=== PATIENT | male | born 1980 | race Caucasian/White ===

== ENCOUNTER 2023-05-28 09:42 | Outpatient (CLI) | payer BC, SELFPAY ==
[2023-05-28 10:31] LABS: Appearance Urine Clear (Clear); Bilirubin Urine Negative (Negative); Blood Urine Negative (Negative); Color Urine Yellow (Yellow); Glucose Urine Negative (Negative); Ketones Urine Negative (Negative); Leukocyte Esterase Urine Negative (Negative); Nitrite Urine Negative (Negative); Protein Urine Negative (Negative); Specific Gravity Urine 1.015 (1.000-1.030); Urobilinogen Urine 0.2 (0.2-1.0); pH Urine 7.5 (5.0-8.5)
[2023-05-28 18:07] LABS: Chlamydia DNA Amplified* NOT DETECTED (No Detected); GC DNA Amplified* NOT DETECTED (No Detected)
== END 2023-05-28 09:43 | disposition home or self-care (01) ==
PROVIDERS: PCP Family Medicine; Visit Provider Nurse Practitioner Family
DX: R30.0 Dysuria (principal)
CPT/HCPCS: 81003; 87086; 87491; 87591

== ENCOUNTER 2024-07-14 04:41 | Emergency (ER) | payer OTHER, SELFPAY ==
[2024-07-14 04:50] VITALS: BP 142/90; PULSE 99; RESP 16; TEMP 36.4; O2SAT 98; BMI 28.5
[2024-07-14] MEDS: KETOROLAC 30 MG/ML inj IVP (05:00)
[2024-07-14 05:08] LABS: Appearance Urine Clear (Clear); Bilirubin Urine Negative (Negative); Blood Urine 3+ (Negative); Color Urine Yellow (Yellow); Glucose Urine Negative (Negative); Ketones Urine Negative (Negative); Leukocyte Esterase Urine Negative (Negative); Nitrite Urine Negative (Negative); Protein Urine 2+ (Negative); Specific Gravity Urine >= 1.030 (1.000-1.030); Urobilinogen Urine 0.2 (0.2-1.0)
--- NOTE | 2024-07-14 05:25 | CRLHL7_ITS ---
For Patients: As a result of the Century Cures Act, medical imaging exams and procedure reports are released immediately into your electronic medical record. You may view this report before your referring provider. If you have questions, please contact your health care provider. INDICATION: Left-sided flank and groin pain. TECHNIQUE: CT abdomen and pelvis without contrast. COMPARISON: None. FINDINGS: Lower chest: Unremarkable. Liver: Normal in size and attenuation. No suspicious masses. Gallbladder and bile ducts: No stones or inflammation. No biliary dilatation. Pancreas: Unremarkable. No mass or inflammation. Spleen: Normal in size. No masses. Adrenal glands: Normal in size. No nodules. Kidneys: Small 2 mm stone is at the left ureterovesical junction on series 2, image 136. There are 2 stones remaining in the left kidney. No hydronephrosis. GI tract: Unremarkable. Normal in caliber. No sign of mass or inflammation. Normal appendix. Vasculature: Abdominal aorta is normal in caliber. Lymph nodes: No lymphadenopathy. Peritoneum/Abdominal Wall: Unremarkable. No sign of mass or infiltration. No free air or significant free fluid. Pelvis: Unremarkable. No pelvic masses. Bones: Unremarkable for age. IMPRESSION: Small 2 mm stone at the left UVJ is not causing obstructive changes at this time. There are 2 additional stones remaining in the left kidney. Remainder of the exam is unremarkable. Please note that all CT scans at this facility use dose modulation, iterative reconstruction, and/or weight-based dosing when appropriate to reduce radiation dose to as low as reasonably achievable. Dictated by Zak Lanier MD @ 07/14/2024 6:30:45 AM (Electronically Signed)
[2024-07-14 05:26] LABS: Bacteria Urine Few; RBC Urine 25-50 (0-2); Squamous Epithelial Cell Urine Few (None-Few)
--- OUTSIDE RECORDS SUMMARY | 2024-07-14 05:33 | XMS_ITS | Continuity of Care Document ---
Author Organization [facility] Address [address] [address] [place] [address] Phone Care Team Providers Care Advanced Practice Registered Nurse Name Role Phone Isaac Mcduffie MD Unavailable Unavailabl e Medications Medication Instructions Dosage Effective Dates (start - stop) Status Comments famotidine 40 mg tablet take 1 tablet by oral route every day at bedtime 40 MG - Active Needs OV for further refills pantoprazole 40 mg tablet,delayed release TAKE ONE TABLET BY MOUTH ONE TIME DAILY - Active Needs OV for further refills baclofen 10 mg tablet TAKE ONE TABLET BY MOUTH TWICE DAILY before meals - Active Metamucil (sugar) oral powder 1 tablespoon everyday - Active Layne Allergy 180 mg tablet take 1 tablet by oral route every day 180 MG - Active CHEWABLE MULTI VITAMIN (unknown strength) take one tablet orally every day Not Available - Active Procedures Procedure Date Established Level 3 Established Level 3 Established Level 3 Offic/outpt E&m Estab Mod-hi 2 20 Offic/outpt E&m Estab Low-mod 8 Offic/outpt E&m Estab Low-mod 8 Breath Test Glucose Offic Cons New/estab Mod Advance Directives Directive Yes / No Effective Date File Name No Information Encounters Encounter Description Practice Location Reason(s) For Visit Diagnoses Date Provider Providers Copied on Encounter [facility], [address] [address], [place], [id number], [place] tel:[phone] [facility] No Information 4 Azar Gray. [address] [facility], [address], [id number], [place]. tel:[phone] [facility], [address] [address], [place], [id number], [place] tel:[phone] [facility] No Information 4 Azar Gray. [address], [id number], [place]. tel:[phone] Established Level 3 [facility], [address] [address], [place], [id number], [place] tel:[phone] [facility] GI Symptoms or Concerns (chief complaint) Previous History Review (chief complaint) Gastroesophage al reflux disease without esophagitisIrr itable bowel syndrome with diarrheaBloati ng 3 Azar Gray. [address] [facility], [address], [id number], [place]. tel:[phone] Referring Provider: Referral Self, USE FOR SELF REFERRALS. [facility], [address] [address], [place], [id number], [place] tel:[phone] [facility] No Information [address]. [address] [place] [address], [id number], [place]. tel:[phone] Established Level 3 [facility], [address] [address], [place], [id number], [place] tel:[phone] [facility] GI Symptoms or Concerns (chief complaint) Gastroesophage al reflux disease without esophagitisIrr itable bowel syndrome with diarrhea 3 2 Evan Holley. [address] [place] [address], [address], [id number], [place]. tel:[phone] Referring Provider: Koby Obando, [address] [place], [address] . tel:[phone] [facility], [address] [address], [place], [id number], [place] tel:[phone] [facility] No Information 2 Azar Gray. [address] [facility], [facility] [address], [place], [place], [id number], [place]. tel:[phone] Established Level 3 [facility], [address] [address], [place], [id number], [place] tel:[phone] [facility] GI Symptoms or Concerns (chief complaint) BloatingGastro esophageal reflux disease without esophagitisIrr itable bowel syndrome with diarrhea 1 Evan Holley. [address] [place] [address], [facility] [address], [place], [id number], [place]. tel:[phone] Referring Provider: Referral Self, USE FOR SELF REFERRALS. [facility], [address] [address], [place], [id number], [place] tel:[phone] [facility] No Information 1 Audrey Bright Salome. [address] [facility], [facility] [address], [place], [place], [id number], [place]. tel:[phone] Offic/outpt E&m Estab Mod-hi 2 [facility], [address] [address], [place], [id number], [place] tel:[phone] [facility] GI Symptoms or Concerns (chief complaint) BloatingGastro esophageal reflux disease without esophagitisIrr itable bowel syndrome with diarrheaDietar y counseling and surveillance 0 Evan Holley. [address] [place] [address], [facility] [address], [place], [id number], [place]. tel:[phone] Referring Provider: Referral Self, USE FOR SELF REFERRALS. [facility], [address] [address], [place], [id number], [place] tel:[phone] [facility] No Information 9 Pricilla Powell. [address] [facility], [place] [address], [place], [place], [id number], [place]. tel:[phone] Offic/outpt E&m Estab Low-mod [facility], [address] [address], [facility] [place], [id number], [place] tel:[phone] [facility] GI Symptoms or Concerns (chief complaint) Gastroesophage al reflux disease without esophagitisIrr itable bowel syndrome with diarrheaDietar y counseling and surveillanceEl evated blood-pressure reading, w/o diagnosis of htnEssential (primary) hypertension 0 8 Evan Holley. [address], [id number], [place]. tel:[phone] Referring Provider: Referral Self, USE FOR SELF REFERRALS. Offic/outpt E&m Estab Low-mod [facility], [address] [address], [facility] [place] [id number], [place] tel:[phone] [facility] GI Symptoms or Concerns (chief complaint) Gastroesophage al reflux disease without esophagitisEpi gastric painBloatingDi etary counseling and surveillance 8 Evan Holley. [address] [place] [address], [id number], [place]. tel:[phone] Referring Provider: Referral Self, USE FOR SELF REFERRALS. [facility], [address] [address], [facility] [place], [id number], [place] tel:[phone] [facility] Bloating 7 Evan Holley. [address], [id number], [place]. tel:[phone] [facility], [address] [address], [facility] [place], [id number], [place] tel:[phone] [facility] Epigastric pain 2 7 Evan Holley. [address] [place] [address], [address], [id number], [place]. tel:[phone] Referring Provider: Referral Self, USE FOR SELF REFERRALS. [facility], [address] [address], [place], [id number], [place] tel:[phone] [facility] Dyspepsia 7 Evan Holley. [address] [facility], [facility] [address], [place], [id number], [place]. [phone] Offic Cons New/estab Mod [facility], [address] [address], [place], [id number], [place] tel:[phone] [facility] GI Symptoms or Concerns (chief complaint) BloatingGastro esophageal reflux disease without esophagitisEpi gastric painDietary counseling and surveillanceEl evated blood-pressure reading, w/o diagnosis of htn Evan Holley. [address] [place] [address], [facility] [address], [place], [id number], [place]. [phone] Referring Provider: Melani Barnes MD, [address] [place] [address], [address]. tel:[phone] Family History Family Member Type Diagnosis Age At Onset Daughter Problem (finding) Alive and well Father Problem (finding) Colon polyps Mother Problem (finding) Alive and well Son Problem (finding) Alive and well Father Problem (finding) gallbladder disease Immunizations Vaccine Date Status Comments Afluria Qd administered Note: [facility] bi-directional interface ; Source: Other Registry Afluria Qd administered Note: [facility] bi-directional interface ; Source: Other Registry SARS-COV-2 (COVID-19) vaccin e, mRNA, spike protein, LNP, bivalent, preservative free, 30 mcg/0.3 mL dose, guillermina-sucrose formulation administered Note: [facility] bi-direct ional interface ; Source: Other Registry Afluria Qd administered Note: [facility] bi-directional interface ; Source: Other Registry SARS-COV-2 (COVID-19) vaccin e, mRNA, spike protein, LNP, preservative free, 30 mcg/0.3mL dose administered Note: [facility] bi-direct ional interface ; Source: Other Registry SARS-COV-2 (COVID-19) vaccin e, mRNA, spike protein, LNP, preservative free, 30 mcg/0.3mL dose administered Note: [facility] bi-direct ional interface ; Source: Other Registry SARS-COV-2 (COVID-19) vaccin e, mRNA, spike protein, LNP, preservative free, 30 mcg/0.3mL dose administered Note: [facility] bi-direct ional interface ; Source: Other Registry Afluria Qd administered Note: [facility] bi-directional interface ; Source: Other Registry Afluria Qd administered Note: [facility] bi-directional interface ; Source: Other Registry Fluzone Quad 6mo or older administered Note: [facility] bi-direct ional interface ; Source: Other Registry Afluria Qd administered Note: [facility] bi-directional interface ; Source: Other Registry Afluria Qd administered Note: [facility] bi-directional interface ; Source: Other Registry Fluzone Quad 6mo or older administered Note: [facility] bi-direct ional interface ; Source: Other Registry tetanus toxoid, reduced diphtheria toxoid, and acellular pertussis vaccine, adsorbed administered Note: [facility] b i-directional interface ; Source: Other Registry Afluria Qd administered Note: [facility] bi-directional interface ; Source: Other Registry Afluria Qd administered Note: [facility] bi-directional interface ; Source: Other Registry Fluzone Quad 6mo or older administered Note: [facility] bi-direct ional interface ; Source: Other Registry Afluria Qd administered Note: [facility] bi-directional interface ; Source: Other Registry Afluria Qd administered Note: [facility] bi-directional interface ; Source: Other Registry Fluzone Quad 6mo or older administered Note: [facility] bi-direct ional interface ; Source: Other Registry tetanus toxoid, reduced diphtheria toxoid, and acellular pertussis vaccine, adsorbed administered Note: [employer] b i-directional interface ; Source: Other Registry tetanus and diphtheria toxoi ds, adsorbed, preservative free, for adult use (2 Lf of tetanus toxoid and 2 Lf of diphtheria toxoid) administered Note: [facility] bi-direct ional interface ; Source: Other Registry measles, mumps and rubella v irus vaccine administered Note: [facility] bi-direct ional interface ; Source: Other Registry diphtheria and tetanus toxoi ds, adsorbed for pediatric use administered Note: [facility] bi -directional interface ; Source: Other Registry Payers Payer name Insurance type Covered green party ID Authoriza tion(s) No Information Social History Type Description Quantity Date Captured Comments Sex Male Smoking Status No Information Chief Complaint And Reason For Visit No Information Reason For Referral Reason For Referral No Information Plan Of Treatment Date Type Action Status Goal Lifestyle education regardin g diet completed Goal Lifestyle education regardin g diet completed Goal Lifestyle education regardin g diet completed Goal Lifestyle education regardin g diet completed Goal Lifestyle education regardin g diet completed Referral Ordered: follow-up visit 1 Month Appointment date/timeframe: 1 Month ordered Appointment Luis Miguel Rodriguez BOOKED History Of Present Illness Encounter Date Complaint History Of Prese nt Illness GI Symptoms or Concerns Luis Miguel is a pleasant 43 year old male with GERD, chronic irritable bowel syndrome and bloating, who I am seeing via virtual office visit, in follow-up. Previous History Review Luis Miguel has had a prior, extensive work-up including EGD with normal biopsies of the esophagus, stomach and duodenum as well as a colonoscopy, video capsule endoscopy, CT scans, bacterial overgrowth breath test, all of which have been essentially unrevealing or negative. Prior treatments have included a trials of desipramine, peppermint oil based therapies, multiple different antacid medications, and cholestyramine, all of which provided no benefit. Symptoms of reflux have been adequately controlled on the current regimen of pantoprazole 40 mg daily , famotidine nightly, and baclofen 10 mg twice daily. on this regimen he is symptoms less than once weekly. Denies chronic cough, change in voice, chest pain, or dysphagia. He previously was experiencing daily loose stools as well as bloating. This is improved and tolerable with fiber supplementation twice daily. He notes stools are semi formed and much easier to pass. He denies any change in, blood per rectum, unintentional weight loss, straining to defecate, or abdominal pain. GI Symptoms or Concerns 42-year- old man with history of chronic heartburn, likely with a functional component, chronic irritable bowel syndrome with diarrhea predominance and bloating, presents for routine follow-up by virtual visit. He was last seen by me in 10/2020 for follow-up. I have been following him since 2017 for these symptoms. He has undergone extensive workup in the past, including upper endoscopy and colonoscopy, video capsule endoscopy, CT scans, bacterial overgrowth breath test, all of which have been essentially unrevealing or negative. The upper endoscopy did include esophageal, gastric, duodenal biopsies, all of which were normal. Previous treatments have included a trial of desipramine, peppermint oil based therapies, multiple different antacid medications, and cholestyramine, all of which provided no benefit. He has had improvement in reflux symptoms partially with pantoprazole 40 mg daily and famotidine nightly. This led us to add baclofen 10 mg 1-2 times per day for functional component of reflux. He is currently happy with this regimen. We again discussed whether 1 or the other anti acid medication may be sufficient, but he has tried only famotidine or only pantoprazole in the past, and feels that symptoms are not as well controlled. He still also feels that the baclofen is helpful, but would be open to trying to decrease the dosage to see if a lesser dosage is equally effective. For his chronic loose stools and bloating in the past, he has found benefit with fiber supplements. He states his maternal grandfather had colon cancer in his 70s. He does not believe his mother has had significant polyps. His father has had some polyps in his 50s and later, but he does not believe that he was on earlier surveillance then every 5 years. GI Symptoms or Concerns Luis Miguel hairston is a very pleasant 40-year-old man who works as a commercial insurance underwriter and has chronic issue with heartburn, likely functional heartburn as well, epigastric discomfort, bloating and IBS symptoms for many years and presents for routine followup today. This visit was conducted as a virtual visit. Luis Miguel was last seen by me in August 2019 for these symptoms.He initially saw me in 2016. He has had extensive workup in the past including upper endoscopy and colonoscopy, video capsule endoscopy, CT scans, bacterial overgrowth breath tests, all of which have been essentially unrevealing or negative. The upper endoscopy did include esophageal gastric and duodenal biopsies.Previous treatments have included a trial of desipramine without any relief. He tried peppermint oil based therapies, multiple different antacid medications and cholestyramine. Currently, he is taking pantoprazole 40 mg daily and famotidine nightly and that combination has been helpful for redu GI Symptoms or Concerns Luis Miguel hairston is a 39-year-old man with a history of chronic heartburn and reflux, epigastric discomfort, bloating, and irritable bowel syndrome, who presents for routine followup.Luis Miguel was last seen by me in May of 2018. Previously, he has been tried on peppermint oil based therapies, multiple different antacid medications, and cholestyramine. Currently, he is taking pantoprazole 40 mg daily, which he had been taking twice per day when I saw him last, but he successfully reduce this to daily without any worsening of his symptoms. He also takes Zantac at night as needed. He takes a fiber supplement, which he says he usually takes Citrucel powder form in the morning and Metamucil at night. He does this with the fiber because Metamucil causes more bloating, but if he takes only the Citrucel powder, he tends to feel his stools are too sticky. He also has been taking baclofen 10 mg twice per day, which we started for nonacid reflux or hypersensitive esophagus. In the past, GI Symptoms or Concerns I had th e pleasure of seeing Luis Miguel Rodriguez today in clinic for followup of chronic heartburn, epigastric discomfort, nausea, bloating, and also some mild constipation. He was last seen by me in August of this year.Luis Miguel has done fairly well with a complicated regimen for his heartburn and epigastric discomfort. He has been taking baclofen 5 mg in the morning and 10 mg at night without any side effects and with a good relief of his heartburn symptoms that he had had previously. He also still continues to take pantoprazole 40 mg twice per day and ranitidine often up to twice a day. For his constipation, he takes Citrucel and Metamucil alternating because Metamucil will give him too much gas otherwise. At previous visit, I had suggested we try cholestyramine and he now tells me he thinks he did not really try that very much and so lately, when he has the feeling of some breakthrough heartburn symptoms, he will take the cholestyramine and he actually thinks that this has helpe GI Symptoms or Concerns Complete history, physical exam, and review of systems were obtained today in the clinic and recorded in our electronic medical record. Please see below for my assessment and plan.I had the pleasure of seeing Luis Miguel Rodriguez again in clinic today for followup of multiple GI complaints. Please refer to my previous clinic note on April 26, 2017 for a full description of his history. Briefly, he is a 37-year-old man with a long history of heartburn and reflux related symptoms as well as boating, epigastric discomfort and nausea for many years. He has previously had workup starting in 2006 with upper endoscopy, colonoscopy, video capsule endoscopy, and gastric emptying study as well as various CAT scans of his abdomen and pelvis and ultrasound, all of which have been normal. He also did have a functional HIDA scan which did show an ejection fraction of 21% but did not correlate with any symptoms and was otherwise normal. He has previously had stool testing for stool culture, GI Symptoms or Concerns Luis Miguel hairston is a 37-year-old man who presents today for a long history of multiple abdominal complaints as well as reflux disease.He states his GI symptoms started in about 2006 with predominantly nausea all the time as well as more mild epigastric abdominal discomfort and alternating bowel habits. In 2006, he had an extensive workup, which he states included a colonoscopy, upper endoscopy, video capsule endoscopy, and gastric emptying study, CT of the abdomen and pelvis and ultrasound all of which were essentially normal. He was started on omeprazole presumably for the epigastric discomfort which may or may not have helped at that time, but he remained on that for many years. In 2008 towards the end of this workup, he started Metamucil and this seemed to help his symptoms almost immediately. He did pretty well until about March of 2016, when he had an episode of eating some very greasy food at a fair and suddenly started to having essentially recurrence of his previous Functional Status Date Functional Assessmen t No Information Instructions Date Instruction Additional Infor debbie Gastroesophageal Reflux Disease Related to Gastroesophageal reflux disease without esophagitis Lifestyle education regarding di et Related to Dietary counseling and surveillance Lifestyle education regarding di et Related to Dietary counseling and surveillance Lifestyle education regarding di et Related to Dietary counseling and surveillance More consistent use of pantoprazole 40 mg daily for at least two weeks as well as ranitidine as needed up to twice per day.Continue with Iberogast.Continue other diet and lifestyle modification for heartburn symptoms.We will trial bile acids sequestrant for bile salt reflux potentially.If no improvement with cholestyramine, we will trial baclofen, which has been prescribed today for nonacid reflux.Patient will contact me in the next few weeks with an update on symptoms and we can discuss further testing and/or treatment, which may include pH impedance monitoring. Related to Gastroesophageal reflux disease without esophagitis Gastroesophageal Reflux Disease Related to Gastroesophageal reflux disease without esophagitis Lifestyle education regarding di et Related to Dietary counseling and surveillance 1. Trial of desipram ine 25 mg at bedtime.2. Avoidance of potential triggers for an advertent aerophagia.3. Trial of low FODMAPs diet.4. Increase pantoprazole to twice daily dosing and discontinue H2 blockers.5. If reflux symptoms persist, I would consider pH impedance monitoring on PPI therapy.6. If bloating and gas symptoms persist, can consider alternative empiric treatment such as with IBgard and/or probiotics, as well as possible testing for bacterial overgrowth. Related to Bloating Gastroesophageal Reflux Disease Related to Gastroesophageal reflux disease without esophagitis Gas and Gas Pain Related to Bloa ting Low FODMAPS diet Related to Bloa ting Lifestyle education regarding di et Related to Dietary counseling and surveillance Assessments Type Assessment Date No Information Patient Care Teams Name Effective Dates (start - stop) Status Members No Information
--- OUTSIDE RECORDS SUMMARY | 2024-07-14 05:33 | XMS_ITS | Clinical Summary ---
Author Organization [facility] Address [place], [place] [address] Care Team Providers Care Mobile Patrol Officer Name Role Phone TaraMelani gipson Primary Care Provider Allergies Active Allergy Reactions Criticality Noted Date Comments Citalopram Other - Describe In Comment Field 07/22/2013 libido Paroxetine Other - Describe In Comment Field 07/22/2013 somnolence Fluoxetine GI Upset 07/22/2013 capsule form causes stomach upset. tolerates tablet form well. Sertraline Other - Describe In Comment Field 07/22/2013 urine leaking and decreased libido Medications Medication Sig Dispensed Refills Start Date End Date Status psyllium (METAMUCIL SMOOTH TEXTURE) Powd Take 1 tsp by mouth once daily. 0 08/27/2010 Active fexofenadine (TRISTA) 180 mg tabletIndications:Nick rgic rhinitis due to cats Take 1 tablet by mouth once daily. 90 tablet 3 08/26/2015 Active baclofen (LIORESAL) 10 mg tablet Take 10 mg by mouth 2 times daily. 5mg PO QAM, 10mg PO QPM 5 02/08/2018 Active famotidine (PEPCID) 20 mg tabletIndications:Roosevelt roesophageal reflux disease with esophagitis without hemorrhage Take 1 Tablet (20 mg) by mouth at bedtime. 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 0 01/25/2021 Active pantoprazole (PROTONIX) 20 mg tabletIndications:Roosevelt roesophageal reflux disease with esophagitis without hemorrhage Take 1 Tablet (20 mg) by mouth once daily. 90 Tablet 4 06/25/2023 Active Active Problems Problem Noted Date Diagnosed Date Routine adult health maintenance 03/15/2018 Overview (03/15/2018): Colonoscopy 02/2018 inflammatory polyp, repeat at age 51 Hiatal hernia 04/15/2016 GERD (gastroesophageal reflux disease) 2 Resolved Problems Problem Noted Date Diagnosed Date Resolved Date Major depressive disorder, r ecurrent episode, moderate 06/19/2013 01/25/2021 Anxiety state, unspecified 02/08/2012 0 01/25/2021 Immunizations Name Administration Dates Next Due COVID-19 vaccine ([employer] 30mcg/0.3mL) PF, MDV 12/11/2020,11/20/2020 DT (Age < 7 years) 03/14/1991 Influenza, IIV3 (Age >=3 years) 08/19/2013,07/27 Influenza, IIV4 05/03/2023, 2,06/17/2021,07/04/20 18,08/16/2016,06/24/2015,07/04/2014 MMR 04/05/1993 Td (Age >=7 Years) 09/06/2001 Tdap 08/15/2015,11/14/2012 Family History Medical History Relation Name Comments Hypertension Father Other Father colon polyps Cancer-colon Maternal Grandfather Cancer-breast Maternal Grandmother Other Other UC cousin Mater nal side Stroke Paternal Grandfather Cancer Paternal Grandmother lung Heart attack Paternal Uncle Hypertension Paternal Uncle Stroke Paternal Uncle twin Relation Name Status Comments Father Maternal Grandfather Maternal Grandmother Other Paternal Grandfather Paternal Grandmother Paternal Uncle Social History Tobacco Use Types Packs/Day Years Used Date Smoking Tobacco: Never Smokeless Tobacco: Never Tobacco Cessation:Counseling Given: Yes Alcohol Use Standard Drinks/Week Comments Yes 8 (1 standard drink = 0.6 oz pur e alcohol) occasional PHQ-2 Answer Date Recorded PHQ-2 TOTAL SCORE 5 06/23/2023 Social Connections Answer Date Recorded Frequency of Communication with Friends and Fami ly Not on file 04/21/2023 Financial Resource Strain Answer Date R ecorded Difficulty of Paying Living Expenses 3 04/13/2022 Difficulty of Paying Living Expenses Not on file 04/13/2022 Food Insecurity Answer Date Recorded Worried About Running Out of Food in the Last Ye ar 1 04/13/2022 Transportation Needs Answer Date Record ed Lack of Transportation (Medical) 1 04/13/2022 Housing Stability Answer Date Recorded Unable to Pay for Housing in the Last Year 1 04/13/2022 Sex and Gender Information Value Date Recorded Sex Assigned at Not on file Gender Identity Not on file Sexual Orientation Not on file Obstetrics History Last Filed Vital Signs Vital Sign Reading Time Taken Comments Blood Pressure 127/79 11/01/2023 9:26 AM CDT Pulse 84 11/01/2023 9:26 AM CDT Temperature 37.5 C (99.5 F) 10/27/2023 11:29 AM FINAL COAT SPRAYER Respiratory Rate 14 05/24/2023 5:02 PM CDT Oxygen Saturation 99% 11/01/2023 9:26 AM CDT Inhaled Oxygen Concentration - - Weight 93.4 kg (206 lb) 11/01/2023 9:26 AM CDT Height 182.9 cm (6') 06/23/2023 11:15 AM CDT Body Mass Index 27.94 06/23/2023 11:15 AM CDT Plan of Treatment Upcoming Encounters Date Type Department Care Team (Late st Contact Info) Description 07/30/2024 9:30 AM FINAL COAT SPRAYER Orders Only [facility] [address] [place] [place] [address] Lab, [place] 10/03/2024 11:15 AM FINAL COAT SPRAYER Office Visit [facility] [address] [place] [address] Jacky Morris MD [address] [place] [address] Health Maintenance Due Date Last Done Comments COVID-19 vaccine series ( season) 2024 06/15/2023, 05/26/2022, 06/17/2021, Additional history exists Influenza for age 9-49 04/21/2024 , 05/26/2022, 06/17/2021, Additional history exists BMI (ht and wt on same day) for age 18+ 06/23/2024 06/23/2023, 02/04/2022, 01/25/2021, Additional history exists Depression screening for age 12+ 06/23/2024 06/23/2023, 07/05/2021, 01/28/2021, Additional history exists Tetanus booster 08/15/2025 08/15/2015, 10/20, 09/06/2001 Lipids for age 35-44 06/23/2028 06/23/2023, 01/28/2021, 08/26/2015 HIV for age 15-65 Completed 04/30/2012 Tdap Completed 08/15/2015, 11/14/2012 Hepatitis C screening for age 18-79 Completed 06/23/2023 Pneumococcal series for age 6-64 Aged Out No longer eligible based on patient's age to complete this topic Procedures Procedure Name Priority Date/Time Associated Diagnosis Comments ANTI HCV Routine 06/23/2023 12:03 PM CDT Need for hepatitis C screening test LIPID PANEL W REFLEX MEASURED LDL Routine 06/23/2023 12:03 PM CDT Lipid screening ANTI HIV 1/2 Routine 04/30/2012 9:54 AM CDT Screening for STD (sexually transmitted disease) from Last 3 Months or Most Recently Relevant to Health Maintenance Results * LIPID PANEL W REFLEX MEASURED LDL (06/23/2023 12:03 PM CDT) CHOLESTEROL,TOTAL 170 100 - 199 mg/dL 06/23/2023 9:36 PM CDT [facility] Comment: Cholesterol, Total Reference Ranges Desirable <200 mg/dL Borderline 200-239 mg/dL High >=240 mg/dL TRIGLYCERIDES 104 <150 mg/dL 06/23/2023 9:36 PM CDT [facility] HDL CHOLESTEROL 66 >40 mg/dL 9:36 PM CDT [facility] NON-HDL CHOLESTEROL 104 <145 mg/dl 06/23/2023 9:36 PM CDT [facility] CHOL/HDL RATIO 2.58 <4.50 06/23/2023 9:36 PM CDT [facility] LDL CHOLESTEROL 83 <=130 mg/dL 06/23/2023 9:36 PM CDT [facility] VLDL CHOLESTEROL 21 <=30 mg/dL 06/23/2023 9:36 PM CDT [facility] PROVIDER ORDERED STATUS RANDOM 06/23/2023 9:36 PM CDT [facility] TRA [facility] Blood BLOOD SPECIMEN / Unknown Venipuncture / Unknown 06/23/2023 12:03 PM CDT 06/23/2023 12:03 PM CDT Melani Barnes DO CHEMISTRY Performing Organization Address City/[facility]/ZIP Co de Phone Number [facility] [address] [place] [address], [place] * ANTI HCV (06/23/2023 12:03 PM CDT) HEPATITIS C ANTIBODY Non-Reacti ve Non-React stefan 06/23/2023 9:35 PM CDT [facility] Comment:Please note, per www .CDC.gov: If a patient is known to be at high risk of HCV infection, or is symptomatic, and the physician's suspicion of HCV infection is high, HCV RNA testing is often employed and is of diagnostic value, even after an initial negative anti-HCV test result. Blood BLOOD SPECIMEN / Unknown Venipuncture / Unknown 06/23/2023 12:03 PM CDT 06/23/2023 12:03 PM CDT Melani Barnes DO SEND OUTS [facility] [address] [place] [address], [place] * ANTI HIV 1/2 (04/30/2012 9:54 AM CDT) ANTI HIV 1/2 Non-reacti ve [facility] Blood specimen (specimen) BLOOD SPECIMEN / Unknown 04/30/2012 9:54 AM CDT 04/30/2012 9:45 AM CDT Melani Barnes DO SEND OUTS [facility] INTERNAL ZIP [address] [place] [address] from Last 3 Months or Most Recently Relevant to Health Maintenance Care Teams Mobile Patrol Officer Relationship Specialty Start Date End Date Melani Barnes DO [address] [facility] [place] [address] PCP - General Family Practice 05/15/13
--- OUTSIDE RECORDS SUMMARY | 2024-07-14 05:34 | XMS_ITS | Continuity of Care Document ---
Author Organization [facility] Nica parra, [facility] Address [address] [place] [address] Care Team Providers Care Servicing Manager Name Role Phone [facility] Primary Care Provider Assessment Encounter Date Assessment Date Assessment LastModified by Organization Details LastModified Time 06/06/2024 06/06/2024 The patient is experiencing erectile dysfunction with associated intermittent numbness and loss of sensation. Differential diagnosis for erectile dysfunction includes but is not limited to: Vascular issues (e.g., insufficient blood flow or premature venous leakage) Neurological causes (e.g., nerve damage or compression) Hormonal imbalances (e.g., low testosterone levels) Psychological factors (e.g., stress, anxiety, depression) [email or web address] Not available 06/06/2024 13:29:51 Plan of Treatment Reminders Order Date Submit Date Provider Last Modified By Organization Details Last Modified Time Details Appointments None recorded . Lab lh (luteini zing hormone) , serum - PLEASE CALL PT TO SCHEDULE 2023 024 alysa [facility], [address] , [place], [address], 10:59:44 testoste edie, total, serum - PLEASE CALL PT TO SCHEDULE 2023 024 [facility] [address] [place], [address], 10:59:45 shbg (sex hormone- binding globulin ), serum - PLEASE CALL PT TO SCHEDULE 2023 024 [facility] [address], [place], [address], 10:59:45 Referral None recorded . Procedures None recorded . Surgeries None recorded . Imaging US, duplex, penis, complete - PLEASE CALL PT TO SCHEDULE 2023 024 alysa [facility] [place], [address], [address], [place], [address], 11:00:25 Medication Orders None recorded . Patient TargetsNo targets recorded. Patient Instructions Encounter Date Encounter Id Patient Instructions Last Modified By Organization Details Last Modified Time 06/06/2024 [id number] We had a long discussion regarding the etiologies of erectile dysfunction. In the vast majority of men, this is due to chronic insults of underlying vascular conditions such as diabetes, hypertension, and hyperlipidemia. In some men this may also be caused by iatrogenic causes such as pelvic surgery as in the case of radical prostatectomy. In some cases it may also be due to underlying neurologic insults. We then discussed potential management strategies for erectile dysfunction. First we discussed vacuum assisted devices. These are a non-pharmacologic therapy which allows blood to be drawn into the penis using a pump and is then held in place with a ring at the base of the penis. Potential side effects can include bruising. Often this is insufficient for most men to maintain sufficient erections as mono therapy. We then discussed pharmacologic options. We discussed the use of phosphodiesterase inhibitors. We discussed this is often a first line therapy for men as it is discreet and can be utilized quickly on an as needed basis. We discussed that this is administered 30-60 minutes before intercourse on an empty stomach. We discussed side effects including flushing, vision changes (blue light vision), hypotension when combined with nitrates, and notably priapism. We discussed in the event of an erection lasting more than 4 hours this is an emergency and he must go to the nearest Emergency Department. We then discussed intraurethral suppository therapy. This may be an option for some men, though efficacy is often lower than that of phosphodiesterase therapy. Men may experience local discomfort and burning with its use. Similar risks of priapism also exist. We then discussed intracavernosal injection therapy. This involved injecting vasodilatory agents directly into the penis using a small needle. This may allow men to achieve erections when phosphodiesterase inhibitors are no longer effective. We discussed administration and potential side effects including bruising, hematoma formation, and risk of priapism. Finally we briefly discussed the role of surgery in the form of penile prosthesis placement. Not available 05/27/2024 16:45:54 Reason for Referral None Reported. Results Created Date Observation Date Name Description Value Unit Range Abnormal Flag Note LastModifiedBy Organization Detail LastModifiedTime 06/13/20 24 06/13/2024 US, penis No observ ation record ed. [facility] [address] [facility] [address], [place], [address], 06/18/2024 11:30:42 Result Notes None recorded. Medical Equipment None Reported. Allergies No known drug allergies Medications Name Sig Start Date Stop Date Status Note LastModified by Organization Details LastModified Time famotidine 40 mg tablet TAKE ONE TABLET BY MOUTH ONE TIME DAILY AT BEDTIME* active Not Available Not Available No t Available baclofen 10 mg tablet TAKE ONE TABLET BY MOUTH TWICE DAILY BEFORE MEALS* active Not Available Not Available No t Available pantoprazole 40 mg tablet,delay ed release TAKE ONE TABLET BY MOUTH ONE TIME DAILY* active Not Available Not Available No t Available oseltamivir 75 mg capsule TAKE ONE CAPSULE BY MOUTH TWICE DAILY FOR 5 DAYS* 06/06 completed Not Available Not Available Not Available Vitals Date Recorded Body height Body mass index (BMI) Body weight Provider Name and Address Organization Details Last Updated DateTime 06/06/2024 182.88 cm 29.2 kg/m2 71848.36 g Gita Arias [facility] 06/06/2024 11:58:50 Social History Question Answer Notes LastModified by Organizat ion Details LastModified Time Tobacco Smoking Status Never Smoker Gita torres [facility] 06/06/2024 12:01:12 What Is Your Level Of Alcohol Consumption? Heavy [email or web address] Information not available 06/06/2024 What Is Your Level Of Caffeine Consumption? None Information not available 06/06/2024 What Was The Date Of Your Most Recent Tobacco Screening? 06/06/2024 [email or web address] Information not available 06/06/2024 Have You Ever Been Counseled For Unhealthy Alcohol Use? No [email or web address] Information not available 06/06/2024 Do You Use Any Illicit Or Recreational Drugs? No Information not available 06/06/2024 How Many Days In The Past Year Have You Consumed 5 Or More Drinks? 100 [email or web address] Information no t available 06/06/2024 Sex: Unknown Functional Status None recorded. Mental Status None recorded. Family History Relationship Description Onset Age of this Age Resolved Age Notes LastModified by Organization Details LastModified Time Maternal Grandfather Family history of cancer of colon [email or web address] Not available 06/06 11:59:59 Paternal Grandmother Family history of cancer of colon Not available 06/06 11:59:59 Maternal Grandmother Family history of breast cancer [email or web address] Not available 06/06 12:00:16 Medical History Condition Response Other N High Blood Pressure N Kidney Stones Y Lung Disease N Depression Y GERD/Acid Reflux Y Diabetes N Sexually Transmitted Infection N Bleeding Disorder N Cancer N High Cholesterol N Heart Disease N Past Encounters Encounter ID Performer Location Encounter Start Date Encounter Closed Date Diagnosis/Indication Diagnosis SNOMED-CT Code Diagnosis ICD10 Code [id number] Nixon Ernandez MD [facility] [address] [place] [address] 06/06/2024 11:46:12 06/07/2024 15:33:09 Erectile dysfunction 027490525 F52.21 Reduced libido 7705083 R 68.82 Health Concerns Section Related Observation LastModified by Organization Detai ls LastModified Time None Recorded Concern Status LastModified by Organization Details LastModified Time None Recorded Payers Encounter Date Sequence Insurance Name Policy Number Policy Campuzano Covered Member ID Campuzano Member ID Guarantor Name 06/06/2024 1 [facility] Luis Miguel Rodriguez [id number] Luis Miguel Rodriguez Notes Date Note Type Note Provider Name and Address Organization Details Recorded Time 06/06/2024 text/html Mr. Rodriguez is a very pleasant 44 year old male who is referred to me for erectile dysfunction. The patient reports experiencing issues with erectile dysfunction that first started in September of this year, which resolved but then recurred at the end of February and has been persistent since. The patient has noticed numbness and loss of sensation during intercourse, which he thought might be related to a possible pinched nerve in his back, although he has no history of long-term back issues. Seen today with his who provides some of the history. Nixon Ernandez MD [address] [place] [address],[address], [place], [address], [facility] 06/06/2024 13:30:37
--- OUTSIDE RECORDS SUMMARY | 2024-07-14 05:34 | XMS_ITS | Data Portability ---
Author Organization [place] [facility] [place] [facility], [facility] Address [address] [facility] [address] [place] [address] Care Team Providers Care Suction Operator Name Role Phone SHANIQUA DUKES ([place]) Primary Care Provider Assessment Encounter Date Assessment [...] CALL PT TO SCHEDULE 2023 024 a[facility]sa [facility] [place] [facility], [address] [place], [address], 10:59:44 testoste edie, total, serum - PLEASE CALL PT TO SCHEDULE 2023 024 alysa [facility] [place] [facility], [address] [place], [address], 10:59:45 shbg (sex hormone- binding globulin ), serum - PLEASE CALL PT TO SCHEDULE 2023 024 alysa [facility], [address], [place], [address], 10:59:45 Referral None recorded . Procedures None recorded . Surgeries None recorded . Imaging US, duplex, penis, complete - PLEASE CALL PT TO SCHEDULE 2023 alysa [facility] [place], [address], [address], [place], [address], 11:00:25 Medication Orders None recorded . Patient TargetsNo targets recorded. Patient Instructions Encounter Date Encounter Id Patient Instructions Last Modified By Organization Details Last Modified Time 06/06/2024 [id number] We had a long discussion regarding the [...] in the form of penile prosthesis placement. [email or web address] Not available 05/27/2024 16:45:54 Reason for Referral None Reported. Results Created Date Observation Date Name Description Value Unit Range Abnormal Flag Note LastModifiedBy Organization Detail LastModifiedTime 06/13/20 24 06/13/2024 US, penis No observ ation record ed. [facility] [address] [place], [address], 06/18/2024 11:30:42 Result Notes None recorded. Procedures Surgical History None recorded. Imaging Results Imaging Date Name Status LastModified by Organiz ation Details LastModified Time 06/13/2024 US, penis completed [facility] [address] [place], [address], 06/18/2024 11:30:42 Procedure Notes None recorded. Medical Equipment None Reported. [...] Updated DateTime 06/06/2024 182.88 cm 29.2 kg/m2 34238.36 g Gita Arias [facility] 06/06/2024 11:58:50 Social History Question Answer Notes LastModified by Organizat ion Details LastModified Time Tobacco Smoking Status Never Smoker Gita Arias CAT torres [facility] 06/06/2024 12:01:12 What Is Your Level Of Alcohol Consumption? Heavy [email or web address] Information not available 06/06/2024 What Is Your Level Of Caffeine Consumption? None [email or web address] Information not available 06/06/2024 What Was The Date Of Your Most Recent Tobacco Screening? 06/06/2024 [email or web address] Information not available 06/06/2024 Have You Ever Been Counseled For Unhealthy Alcohol Use? No [email or web address] Information not available 06/06/2024 Do You Use Any Illicit Or Recreational Drugs? No [email or web address] Information not available 06/06/2024 How Many Days In The Past Year Have You Consumed 5 Or More Drinks? 100 [email or web address] Information no t available 06/06/2024 Sex: Unknown Functional Status None recorded. Mental Status None recorded. Family History Relationship Description Onset Age of this Age Resolved Age Notes LastModified by Organization Details LastModified Time Maternal Grandfather Family history of cancer of colon [email or web address] Not available 06/06 11:59:59 Paternal Grandmother Family history of cancer of colon [email or web address] Not available 06/06 11:59:59 Maternal Grandmother Family history of breast cancer [email or web address] Not available 06/06 12:00:16 Medical History Condition Response Other N High Blood Pressure N Kidney Stones Y Lung Disease N Depression Y GERD/Acid Reflux Y Sexually Transmitted Infection N Cancer N High Cholesterol N Diabetes N Bleeding Disorder N Heart Disease N Past Encounters Encounter ID Performer Location Encounter Start Date Encounter Closed Date Diagnosis/Indication Diagnosis SNOMED-CT Code Diagnosis ICD10 Code [id number] Nixon Ernandez MD [facility] [address] [place] [address] 06/06/2024 11:46:12 06/07/2024 15:33:09 Erectile dysfunction 421278801 F52.21 Reduced libido 4677054 R 68.82 Health Concerns Section Related Observation LastModified by Organization Detai ls LastModified Time None Recorded Concern Status LastModified by Organization Details LastModified Time None Recorded Advance Directives Directive None Recorded Payers Encounter Date Sequence Insurance Name Policy Number Policy Campuzano Covered Member ID Campuzano Member ID Guarantor Name 06/06/[address] [facility] Luis Miguel Rodriguez [id number] Luis Miguel Rodriguez Notes Date Note Type [...] some of the history. Nixon Ernandez MD [address] [facility] [facility], [address], [facility] 06/06/2024 13:30:37
[2024-07-14 05:49] LABS: Chloride* 103 mmol/L (96-114); Potassium* 3.8 mmol/L (3.6-5.1); Sodium* 137 mmol/L (135-149)
[2024-07-14 05:52] LABS: Anion Gap 8 mEq/L (7-15); Blood Urea Nitrogen* 16 mg/dL (5-24); Carbon Dioxide* 26 mmol/L (20-32); Creatinine* 0.9 mg/dL (0.5-1.5); Est. Creatinine Clearance* 116.16; Estimated Glomerular Filt Rate 109 ml/min
[2024-07-14 05:53] LABS: Calcium* 9.6 mg/dL (8.4-10.6); Glucose* 106 mg/dL (60-115)
--- NOTE | 2024-07-14 06:11 | ED.GENADULT ---
HPI - General Adult General Chief complaint: Flank Pain Stated complaint: Likely kidney stone Time Seen by Provider: 07/14/24 05:01 History of Present Illness HPI narrative: woke up at 0300 with severe lower abd cramping. moved to L flank at 0430. states hx of kidney stones. no meds for pain. denies visual blood in urine. 44-year-old man presenting to the emergency department with abrupt onset of left low abdominal pain radiating into genitals and then feeling shock of pain in his left flank. Colicky. Prior to my seeing him has gone to urinate here in the emergency department and was suddenly improved. Has not had fever. No vomiting. No hematuria. No constipation or diarrhea. No meds taken yet. Recalls a history of a 2 mm stone on the right side in 2010 and that this discomfort is similar Related Data Home Medications ?Medication ?Instructions ?Recorded ?Confirmed baclofen 10 mg tablet 10 mg PO BID 05/28/23 05/28/23 famotidine 20 mg tablet (Acid 20 mg PO BID 05/28/23 05/28/23 Automotive Warranty Administrator (famotidine)) pantoprazole 40 mg tablet,delayed 40 mg PO DAILY 05/28/23 05/28/23 release Previous Rx's ?Medication ?Instructions ?Recorded fluconazole 200 mg tablet 200 mg PO Q72H #2 tabs 05/28/23 (Diflucan) oxycodone-acetaminophen 5 mg-325 1 - 2 tab PO Q4-6H PRN pain #10 07/14/24 mg tablet (Percocet) tabs tamsulosin 0.4 mg capsule (Flomax) 0.4 mg PO DAILY PRN for spasm #15 07/14/24 caps Allergies Allergy/AdvReac Type Severity Reaction Status Date / Time No Known Drug Allergies Allergy Verified 05/28/23 09:29 Review of Systems Status of ROS: Reports: 6 or more systems reviewed and unremarkable except as noted in History and below [facility] Medical History Balanitis ?N48.1 - Balanitis (ICD-10) Dysuria ?R30.0 - Dysuria (ICD-10) Social History Smoking Status: Never smoker Do you use any of these nicotine containing products: None How often do you have a drink containing alcohol: never AUDIT-C Alcohol total score: 0 Non-prescribed substance use: denies use Exam Narrative: Exam Narrative: Pleasant. Calm. Skin is warm and dry. Breathing easily. Lungs are clear. Heart in elevated rate and regular rhythm. Abdomen is soft and little tender to palpation without peritoneal signs in the left mid abdomen. Genitourinary exam was not done. Perfused peripherally. No apparent extremity edema. Const: Vital Signs, click to edit/add: Vital Signs - 24 hr 07/14/24 04:50 Temperature 97.6 F Pulse Rate [Pulse Oximeter] 99 Respiratory Rate 16 Blood Pressure [Le ft Upper Arm] 142/90 H Pulse Oximetry 98 Oxygen Delivery Me thod Room Air Documenting provider has reviewed patient's vital signs: yes Course Vital Signs Vital signs: Initial Vital Signs Temperature 97.6 F 07/14/24 04:50 Temperature Source Temporal Artery Scan 07/14/24 04:50 Pulse Rate 99 07/14/24 04:50 Respiratory Rate 16 07/14/24 04:50 Blood Pressure 142/90 H 07/14/24 04:50 Blood Pressure Mean 107 H 07/14/24 04:50 Blood Pressure Position Sitting 07/14/24 04:50 Pulse Oximetry 98 07/14/24 04:50 Oxygen Delivery Method Room Air 07/14/24 04:50 Vital Signs Temperature 97.6 F 07/14/24 04:50 Pulse Rate 99 07/14/24 04:50 Respiratory Rate 16 07/14/24 04:50 Blood Pressure 142/90 H 07/14/24 04:50 Pulse Oximetry 98 07/14/24 04:50 Oxygen Delivery Method Room Air 07/14/24 04:50 Temperature 97.6 F 07/14/24 04:50 Pulse Rate 99 07/14/24 04:50 Respiratory Rate 16 07/14/24 04:50 Blood Pressure 142/90 H 07/14/24 04:50 Pulse Oximetry 98 07/14/24 04:50 Oxygen Delivery Method Room Air 07/14/24 04:50 Medications Administered Medications: Discontinued Medications Generic Name Dose Route Start Last Admin Trade Name Freq PRN Reason Stop Dose Admin Ketorolac Tromethamine 30 mg 07/14/24 06:21 07/14/24 05:00 Ketorolac 30 Mg/Ml Inj IVP 07/14/24 06:22 30 mg ONCE ONE Administration Medical Decision Making MDM Narrative Medical decision making narrative: Differential includes diverticulitis, referred testicular pain, ureteral stone and colic, urinary tract infection, intestinal colic I suspect this is representing ureteral stone and colic that may have just dropped into his bladder given location that he had described. Still with some discomfort and would give ketorolac. Does not feel like he needs more immediate relief of pain. IV established and given ketorolac. Has been some time since last ureteral stone. However with improvement in symptoms pending other findings in urine or labs and resolution of pain might be able to defer imaging and continued improvement. He and spouse discussed and would like to proceed with imaging. Not unreasonable. I did independently review non contrasted CT imaging of abdomen and pelvis. I do not see significant hydronephrosis. There are a couple stones in the left renal pelvis. There is approximately a 2 mm stone right about at the ureteral vesicular junction. Labs are reassuring with normal renal function. Urinalysis with blood and some white cells on microscopic but without leukocyte esterase or nitrate. Consistent with abrupt onset and ureteral stone. Overall improved during time in the emergency department. See patient discharge plan for further discussion Generally stay well hydrated with water. Can strain your urine over this next week and might catch something worth analyzing. Can take up to 800 mg ibuprofen per dose. Sending in a prescription of Flomax that might help with spasm and if needed an opiate prescription of Percocet. You might consider taking the Flomax daily until stone no longer an issue/assured of passage. Return for marked increase in persistent pain, associated fever, symptoms of pain lasting 5 days. I will call you if Radiology has more to say about your CT. Radiology over-read below TECHNIQUE: CT abdomen and pelvis without contrast. COMPARISON: None. FINDINGS: Lower chest: Unremarkable. Liver: Normal in size and attenuation. No suspicious masses. Gallbladder and bile ducts: No stones or inflammation. No biliary dilatation. Pancreas: Unremarkable. No mass or inflammation. Spleen: Normal in size. No masses. Adrenal glands: Normal in size. No nodules. Kidneys: Small 2 mm stone is at the left ureterovesical junction on series 2, image 136. There are 2 stones remaining in the left kidney. No hydronephrosis. GI tract: Unremarkable. Normal in caliber. No sign of mass or inflammation. Normal appendix. Vasculature: Abdominal aorta is normal in caliber. Lymph nodes: No lymphadenopathy. Peritoneum/Abdominal Wall: Unremarkable. No sign of mass or infiltration. No free air or significant free fluid. Pelvis: Unremarkable. No pelvic masses. Bones: Unremarkable for age. IMPRESSION: Small 2 mm stone at the left UVJ is not causing obstructive changes at this time. There are 2 additional stones remaining in the left kidney. Remainder of the exam is unremarkable. Medical Records Medical records reviewed: Yes I reviewed the patient's medical records Lab Data Lab results reviewed: Yes I reviewed the patient's lab results Labs: Lab Results 07/14/24 07/14/24 Range/Units 04:51 04:55 Sodium 137 (135-149) mmol/L Potassium 3.8 (3.6-5.1) mmol/L Chloride 103 (96-114) mmol/L Carbon Dioxide 26 (20-32) mmol/L Anion Gap 8 (7-15) mEq/L BUN 16 (5-24) mg/dL Creatinine 0.9 (0.5-1.5) mg/dL Estimated Creat Clear 116.16 Estimated GFR 109 ml/min Glucose 106 (60-115) mg/dL Calcium 9.6 (8.4-10.6) mg/dL Urine Color Yellow (Yellow) Urine Appearance Clear (Clear) Urine pH 6.0 (5.0-8.5) Ur Specific [place] >= 1.030 (1.000-1.030) Urine Protein 2+ A (Negative) Urine Glucose (UA) Negative (Negative) Urine Ketones Negative (Negative) Urine Blood 3+ A (Negative) Urine Nitrite Negative (Negative) Urine Bilirubin Negative (Negative) Urine Urobilinogen 0.2 (0.2-1.0) Ur Leukocyte Esterase Negative (Negative) Urine RBC 25-50 A (0-2) Urine WBC 10-25 A (0-5) Ur Squamous Epith Cells Few (None-Few) Urine Bacteria Few A (None) Discharge Plan Discharge Clinical Impression: Ureteral colic, Kidney stone Patient Disposition: Home, Self-Care Condition: Improved Additional Instructions: Generally stay well hydrated with water. Can strain your urine over this next week and might catch something worth analyzing. Can take up to 800 mg ibuprofen per dose. Sending in a prescription of Flomax that might help with spasm and if needed an opiate prescription of Percocet. You might consider taking the Flomax daily until stone no longer an issue/assured of passage. Return for marked increase in persistent pain, associated fever, symptoms of pain lasting 5 days. I will call you if Radiology has more to say about your CT. Prescriptions: New tamsulosin [Flomax] 0.4 mg capsule 0.4 mg PO DAILY PRN (Reason: for spasm) Qty: 15 0RF oxycodone-acetaminophen [Percocet] 5-325 mg tablet 1 - 2 tab PO Q4-6H PRN (Reason: pain) Qty: 10 0RF No Action pantoprazole 40 mg tablet,delayed release (DR/EC) 40 mg PO DAILY baclofen 10 mg tablet 10 mg PO BID famotidine [Acid Automotive Warranty Administrator (famotidine)] 20 mg tablet 20 mg PO BID fluconazole [Diflucan] 200 mg tablet 200 mg PO Q72H Qty: 2 0RF Follow Up/Referrals: Melani Barnes DO [Primary Care Provider] - Stand Alone Forms: [employer] Info Instructions
== END 2024-07-14 06:26 | disposition home or self-care (01) ==
PROVIDERS: Emergency Provider Family Medicine; PCP Family Medicine
DX: N23 Unspecified renal colic (principal); N20.0 Calculus of kidney
CPT/HCPCS: 36415; 74176; 80048; 81001; 87086; 96374; 99284; J1885

== ENCOUNTER 2024-09-01 06:10 | Emergency (ER) | payer OTHER, SELFPAY ==
[2024-09-01 06:16] VITALS: BP 143/87; PULSE 90; RESP 16; TEMP 36; O2SAT 98; BMI 27.1
[2024-09-01 06:36] LABS: Appearance Urine Clear (Clear); Bilirubin Urine Negative (Negative); Blood Urine Negative (Negative); Color Urine Yellow (Yellow); Glucose Urine Negative (Negative); Ketones Urine Negative (Negative); Leukocyte Esterase Urine Negative (Negative); Nitrite Urine Negative (Negative); Protein Urine Negative (Negative); Urobilinogen Urine 0.2 (0.2-1.0)
[2024-09-01 06:45] LABS: Amphetamine Screen Urine Negative (Negative); Barbiturate Screen Urine Negative (Negative); Benzodiazepines Screen Urine Negative (Negative); Cannabinoid Screen Urine POSITIVE (Negative); Cocaine Screen Urine Negative (Negative); Methadone Screen Urine Negative (Negative); Methamphetamines Screen Urine Negative (Negative); Opiate Screen Urine Negative (Negative); Oxycodone Screen Urine Negative (Negative); Phencyclidine Screen Urine Negative (Negative); Tricyclic Antidepressant Urine Negative (Negative)
--- NOTE | 2024-09-01 08:22 | ED_ITS ---
HPI - Psych General Date Seen: 09/01/24 Chief Complaint: Psychiatric Problem/Disorder Stated Complaint: mental health issue Time Seen by Provider: 09/01/24 07:57 Source: patient, family and police Mode of arrival: other (Police) Limitations: no limitations History of Present Illness HPI Narrative: Patient is a 44-year-old male presenting to the emergency department for a psychiatric evaluation. He was brought in by the police. They states they were called to the home by his because he put a knife to his wrist and said ?he no longer wanted to be here.? He did make a small cut to his wrist that is superficial. There was no bleeding. The patient states him his got into an argument. He states he he wants a divorce her has told her that he wants a divorce. He states this made her very argumentative. He tried to just go to bed but she woke, and he engaged with the argument because he was tired. Patient states he is very angry as but is not suicidal. Has never had a suicide attempt before. Does have history of depression but states he has not been on medication for over 8 years due to the side effects. States he has not been feeling depressed. Denies suicidal or homicidal thoughts. He is very adamant he does not want to hurt himself. Related Data Home Medications ?Medication ?Instructions ?Recorded ?Confirmed baclofen 10 mg tablet 10 mg PO BID 05/28/23 05/28/23 famotidine 20 mg tablet (Acid 20 mg PO BID 05/28/23 05/28/23 Lead Accountant (famotidine)) pantoprazole 40 mg tablet,delayed 40 mg PO DAILY 05/28/23 05/28/23 release Previous Rx's ?Medication ?Instructions ?Recorded fluconazole 200 mg tablet 200 mg PO Q72H #2 tabs 05/28/23 (Diflucan) oxycodone-acetaminophen 5 mg-325 1 - 2 tab PO Q4-6H PRN pain #10 07/14/24 mg tablet (Percocet) tabs tamsulosin 0.4 mg capsule (Flomax) 0.4 mg PO DAILY PRN for spasm #15 07/14/24 caps Allergies Allergy/AdvReac Type Severity Reaction Status Date / Time No Known Drug Allergies Allergy Verified 05/28/23 09:29 Review of Systems Status of ROS: Reports: 10 or more systems reviewed and unremarkable except as noted in History and below [facility] Medical History Balanitis ?N48.1 - Balanitis (ICD-10) Dysuria ?R30.0 - Dysuria (ICD-10) Social History Smoking Status: Never smoker Do you use any of these nicotine containing products: None How often do you have a drink containing alcohol: never AUDIT-C Alcohol total score: 0 Non-prescribed substance use: denies use Exam Narrative: Exam Narrative: Const: Well-nourished, Well-developed, in mild distress Eyes: PERRL, no conjunctival injection, and symmetrical lids HENT: Atraumatic external nose and ears. Moist mucous membranes. Neck: Symmetric, trachea midline, No thyromegaly. CVS: RRR, No murmurs or gallops. Peripheral pulses 2+ and equal in all extremities RESP: Unlabored respiratory effort. Clear to auscultation bilaterally. GI: Nontender/Nondistended, No rebound or guarding. MSK:Extremities w/o deformity, Normal Active ROM Skin: Warm, Dry. No rashes or lesions. Neuro: Normal Muscle tone, No focal neurological deficits. Psych: Awake, Alert, & Oriented x3. Appropriate mood and affect. Const: Vital Signs, click to edit/add: Vital Signs - 24 hr 09/01/24 06:16 Temperature 96.8 F L Pulse Rate [Left P ulse Oximeter] 90 Respiratory Rate 16 Blood Pressure [Ri ght Upper Arm] 143/87 H Pulse Oximetry 98 Oxygen Delivery Me thod Room Air Course Vital Signs Vital signs: Initial Vital Signs Temperature 96.8 F L 09/01/24 06:16 Temperature Source Temporal Artery Scan 09/01/24 06:16 Pulse Rate 90 09/01/24 06:16 Pulse Rhythm Regular 09/01/24 06:16 Respiratory Rate 16 09/01/24 06:16 Blood Pressure 143/87 H 09/01/24 06:16 Blood Pressure Mean 105 09/01/24 06:16 Blood Pressure Position Sitting 09/01/24 06:16 Pulse Oximetry 98 09/01/24 06:16 Oxygen Delivery Method Room Air 09/01/24 06:16 Vital Signs Temperature 96.8 F L 09/01/24 06:16 Pulse Rate 90 09/01/24 06:16 Respiratory Rate 16 09/01/24 06:16 Blood Pressure 143/87 H 09/01/24 06:16 Pulse Oximetry 98 09/01/24 06:16 Oxygen Delivery Method Room Air 09/01/24 06:16 Temperature 96.8 F L 09/01/24 06:16 Pulse Rate 90 09/01/24 06:16 Respiratory Rate 16 09/01/24 06:16 Blood Pressure 143/87 H 09/01/24 06:16 Pulse Oximetry 98 09/01/24 06:16 Oxygen Delivery Method Room Air 09/01/24 06:16 MDM - Psych MDM Narrative Medical decision making narrative: Patient is a 44-year-old male presenting for a psych evaluation. Patient is brought by police because his told them he was suicidal. The patient denies being suicidal. He does have a mild superficial scratch to his left wrist. Speaking to the patient though he does not appear to show signs of depression. He is looking me directly in the eye and does not appear to be trying to hide anything. He is not tearful and just seems frustrated because he is stuck in the emergency department and needs to be to work by 11:00. He states ?this is what I get for wanting a divorce.? Based on my conversation with him I do not believe he is actually a threat to himself or others but I will wait for his mother. His mother did arrive and I spoke to her privately. I explained to her what I have been told. She states that he has been more stressed out recently because he does not trust his but she has no concern he would hurt himself or others. She believes he would be safe for discharge states she can take him home to her house where he has a change of clothes and can not bring him to work. She feels comfortable with this plan. I reiterated that I want make sure he is safe to go home and she again is adamant that she believes he is safe. At this time she is in the room speaking well and again is comfortable taking him home and believes he is safe. Due to this I feel comfortable discharging him to his mother's care. This is also what he wants to do. Lab Data Labs: Lab Results 09/01/24 Range/Units 06:29 Urine Color Yellow (Yellow) Urine Appearance Clear (Clear) Urine pH 7.0 (5.0-8.5) Ur Specific [place] 1.010 (1.000-1.030) Urine Protein Negative (Negative) Urine Glucose (UA) Negative (Negative) Urine Ketones Negative (Negative) Urine Blood Negative (Negative) Urine Nitrite Negative (Negative) Urine Bilirubin Negative (Negative) Urine Urobilinogen 0.2 (0.2-1.0) Ur Leukocyte Esterase Negative (Negative) Urine Opiates Screen Negative (Negative) Ur Oxycodone Screen Negative (Negative) Urine Methadone Screen Negative (Negative) Ur Barbiturates Screen Negative (Negative) U Tricyclic Antidepress Negative (Negative) Ur Phencyclidine Scrn Negative (Negative) Ur Amphetamines Screen Negative (Negative) U Methamphetamines Scrn Negative (Negative) U Benzodiazepines Scrn Negative (Negative) Urine Cocaine Screen Negative (Negative) U Marijuana (THC) Screen POSITIVE A (Negative) Ur Drug Screen Comment See Note Discharge Plan Discharge Clinical Impression: No abnormality detected on mental health assessment Patient Disposition: Home w/ Parent or Adult Condition: Stable Instructions: Depression (ED) Additional Instructions: Return for any new or worsening symptom Prescriptions: No Action pantoprazole 40 mg tablet,delayed release (DR/EC) 40 mg PO DAILY baclofen 10 mg tablet 10 mg PO BID famotidine [Acid Lead Accountant (famotidine)] 20 mg tablet 20 mg PO BID fluconazole [Diflucan] 200 mg tablet 200 mg PO Q72H Qty: 2 0RF tamsulosin [Flomax] 0.4 mg capsule 0.4 mg PO DAILY PRN (Reason: for spasm) Qty: 15 0RF oxycodone-acetaminophen [Percocet] 5-325 mg tablet 1 - 2 tab PO Q4-6H PRN (Reason: pain) Qty: 10 0RF Follow Up/Referrals: Melani Barnes DO [Primary Care Provider] - Stand Alone Forms: [employer] Info Instructions
--- OUTSIDE RECORDS SUMMARY | 2024-09-01 08:24 | XMS_ITS | Clinical Summary ---
Author Organization [employer] [facility] Address [place], [place] [address] Care Team Providers Care Culturist Name Role Phone Melani Barnes Primary Care Provider Allergies Active Allergy Reactions Criticality Noted Date Comments Citalopram Other - Describe In Comment Field 07/22/2013 libido Paroxetine Other - Describe In Comment Field 07/22/2013 somnolence Fluoxetine GI Upset 07/22/2013 capsule form causes stomach upset. tolerates tablet form well. Sertraline Other - Describe In Comment Field 07/22/2013 urine leaking and decreased libido Medications psyllium (METAMUCIL SMOOTH TEXTURE) Powd Take 1 tsp by mouth once daily. 0 1 Active baclofen (LIORESAL) 10 mg tablet Take 10 mg by mouth 2 times daily. 5mg PO QAM, 10mg PO QPM 5 8 Active famotidine (PEPCID) 20 mg tabletIndication s:Gastroesophage al reflux disease with esophagitis without hemorrhage Take 1 Tablet (20 mg) by mouth at bedtime. 0 1 Active methylcellulose, Laxative, (Citrucel) 500 mg tabIndications:I rritable bowel syndrome with both constipation and diarrhea Take 1 Tablet by mouth once daily. 0 1 Active venlafaxine (EFFEXOR XR) 37.5 mg Extended-Release capsuleIndicatio ns:Severe episode of recurrent major depressive disorder, without psychotic features (HC),VICKY (generalized anxiety disorder) Take 1 Capsule (37.5 mg) by mouth once daily with a meal for 7 days, THEN 2 Capsules (75 mg) once daily with a meal. 67 Capsule 5 10/05/19 25 Active fexofenadine (Layne) 180 mg tabletIndication s:Allergic rhinitis due to cats Take 180 mg by mouth once daily. 100 Tablet 3 5 Active pantoprazole (PROTONIX) 20 mg tabletIndication s:Gastroesophage al reflux disease with esophagitis without hemorrhage Take 1 Tablet (20 mg) by mouth once daily. 100 Tablet 3 5 Active fexofenadine (LAYNE) 180 mg tabletIndication s:Allergic rhinitis due to cats Take 1 tablet by mouth once daily. 90 tablet 3 6 08/29/19 25 Discontinu ed(Reorder (E-cancel not sent)) pantoprazole (PROTONIX) 20 mg tabletIndication s:Gastroesophage al reflux disease with esophagitis without hemorrhage Take 1 Tablet (20 mg) by mouth once daily. 90 Tablet 4 3 08/29/19 25 Discontinu ed(Reorder (E-cancel not sent)) Active Problems Problem Noted Date Diagnosed Date Kidney stone 08/29/2024 Routine adult health maintenance 03/15/2018 Overview (03/15/2018): Colonoscopy 02/2018 inflammatory polyp, repeat at age 51 Hiatal hernia 04/15/2016 GERD (gastroesophageal reflux disease) 2 Resolved Problems Problem Noted Date Diagnosed Date Resolved Date Major depressive disorder, r ecurrent episode, moderate 06/19/2013 01/25/2021 Anxiety state, unspecified 02/08/2012 0 01/25/2021 Encounters Date Type Department Care Team Description 08/29/2024 10:00 AM EMERGENCY VETERINARY TECHNICIAN Office Visit [facility] [address] [place] [address] Sonia Ji MD Physical (44 Year Old man ); Urinary Problem (Darker urine ); Gi Problem (White/ Discolored BM) 08/29/2024 Travel 08/24/2024 Travel 08/20/2024 8:15 AM EMERGENCY VETERINARY TECHNICIAN Ancillary Procedure [facility] [address] [place] [address] 08/20/2024 7:40 AM EMERGENCY VETERINARY TECHNICIAN Office Visit [facility] [address] [place] [address] Tami Priest, DO Musculoskeletal Problem (LEFT shoulder pain - 2 months - 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 - gradually worsening - other day needed to prop it with a pillow and was difficult to move ) 08/20/2024 Travel 08/15/2024 Travel 08/09/2024 11:15 AM EMERGENCY VETERINARY TECHNICIAN Orders Only [facility] [address] [place] [address] Lab, [facility] 08/09/2024 Nurse Triage [facility] [address] [place] [address] Melani Barnes, DO Shoulder Pain/problem 08/08/2024 Travel 08/07/2024 Telephone [facility] [address] [place] [address] Lab, [facility] (Orders) 07/29/2024 Travel 07/14/2024 Orders Only [facility] Scanner 1 scan: (1-Ord) [facility], CT ABDOMEN PELVIS WO CON, 07/14/2024 from Last 3 Months Immunizations Name Administration Dates Next Due COVID-19 vaccine ([employer] NT[employer] 30mcg/0.3mL) PF, MDV 12/11/2020,11/20/2020 DT (Age < 7 years) 03/14/1991 INFLUENZA, IIV3 PF (AGE >= 6 MO) 06/13/2024 Influenza, IIV3 (Age >=3 years) 08/19/2013,07/27 Influenza, [...] = 0.6 oz pur e alcohol) occasional [facility] Utilities Answer Date Recorded Do you have trouble paying f or utilities (for example, heat, electricity, water, phone)? Yes 08/15/2024 PHQ-2 Answer Date Recorded PHQ-2 TOTAL SCORE 6 08/29/2024 Social Connections Answer Date Recorded Do you often feel lonely or isolated from those around you? 4 08/15/2024 Financial Resource Strain Answer Date R ecorded Difficulty of Paying Living Expenses 3 08/15/2024 Difficulty of Paying Living Expenses Not on file 08/15/2024 Food Insecurity Answer Date Recorded Do you worry your food will run out before you are able to buy more? 1 08/15/2024 Transportation Needs Answer Date Record ed Does lack of transportation keep you from medica l appointments? 1 08/15/2024 Does lack of transportation keep you from work, meetings or getting things that you need? 1 08/15/2024 Housing Stability Answer Date Recorded What is your housing situation today? 1 08/15/2024 Sex and Gender Information Value Date Recorded Sex Assigned at Not on file Legal Sex Male 8:02 AM EMERGENCY VETERINARY TECHNICIAN Gender Identity Not on file Sexual Orientation Not on file Obstetrics History Last Filed Vital Signs Vital Sign Reading Time Taken Comments Blood Pressure 134/79 08/29/2024 9:57 AM EMERGENCY VETERINARY TECHNICIAN Pulse 69 08/29/2024 9:57 AM EMERGENCY VETERINARY TECHNICIAN Temperature 37.5 C (99.5 F) 10/27/2023 11:29 AM EMERGENCY VETERINARY TECHNICIAN Respiratory Rate 14 05/24/2023 5:02 PM CDT Oxygen Saturation 98% 08/29/2024 9:57 AM EMERGENCY VETERINARY TECHNICIAN Inhaled Oxygen Concentration - - Weight 91.1 kg (200 lb 12.8 oz) 08/29/2024 9:57 AM EMERGENCY VETERINARY TECHNICIAN Height 185 cm (6' 0.84) 08/29/2024 9:57 AM EMERGENCY VETERINARY TECHNICIAN Body Mass Index 26.61 08/29/2024 9:57 AM EMERGENCY VETERINARY TECHNICIAN Plan of Treatment Upcoming Encounters Date Type Department Care Team (Late st Contact Info) Description 10/03/2024 8:45 AM EMERGENCY VETERINARY TECHNICIAN Office Visit [facility] [address] [place] [address] Sonia Ji MD [address] [place] [address] 10/03/2024 11:15 AM EMERGENCY VETERINARY TECHNICIAN Office Visit [facility] [address] [place] [address] Jacky Morris MD [address] [place] [address] Health Maintenance Due Date Last Done Comments Tetanus booster 08/15/2025 08/15/2015, 10/20, 09/06/2001 BMI (ht and wt on same day) for age 18+ 08/29/2025 08/29/2024, 06/23/2023, 02/04/2022, Additional history exists Depression screening for age 12+ 08/29/2025 08/29/2024, 06/23/2023, 07/05/2021, Additional history exists Lipids for age 35-44 06/23/2028 06/23/2023, 01/28/2021, 08/26/2015 HIV for age 15-65 Completed 04/30/2012 Tdap Completed 08/15/2015, 11/14/2012 Hepatitis C screening for age 18-79 Completed 06/23/2023 COVID-19 vaccine series Completed 06/13/20 24, 06/15/2023, 05/26/2022, Additional history exists Influenza for age 9-49 Completed 4, 05/03/2023, 05/26/2022, Additional history exists Pneumococcal series for age 6-49 Aged Out No longer eligible based on patient's age to complete this topic Procedures Procedure Name Priority Date/Time Associated Diagnosis Comments COMP METABOLIC PANEL Routine 08/29/2024 11:10 AM EMERGENCY VETERINARY TECHNICIAN Routine medical exam CBC WITH AUTO DIFFERENTIAL Routine 08/29/2024 11:10 AM EMERGENCY VETERINARY TECHNICIAN Routine medical exam TSH WITH REFLEX Routine 08/29/2024 11:10 AM EMERGENCY VETERINARY TECHNICIAN Severe episode of recurrent major depressive disorder, without psychotic features (HC) XR SHOULDER 3 VIEWS LEFT Routine 08/20/2024 8:22 AM EMERGENCY VETERINARY TECHNICIAN Injury of left rotator cuff, initial encounter SCAN-CT INTERPRETATION 12:00 AM EMERGENCY VETERINARY TECHNICIAN ANTI HCV Routine 06/23/2023 12:03 PM CDT Need for hepatitis C screening test LIPID PANEL W REFLEX MEASURED LDL Routine 06/23/2023 12:03 PM CDT Lipid screening ANTI HIV 1/2 Routine 04/30/2012 9:54 AM CDT Screening for STD (sexually transmitted disease) from Last 3 Months or Most Recently Relevant to Health Maintenance Results * TSH WITH REFLEX (08/29/2024 11:10 AM EMERGENCY VETERINARY TECHNICIAN) TSH W/REFLEX TO FT4 0.68 0.40 - 4.50 mIU/L [facility] [facility] Blood BLOOD SPECIMEN / Unknown 08/29/2024 11:10 AM EMERGENCY VETERINARY TECHNICIAN 08/29/2024 11:10 AM EMERGENCY VETERINARY TECHNICIAN us Sonia Ji MD CHEMISTRY Final Resul t [facility] [address] [place] [address], [place] [phone] [employer] [address] [place] [address] * CBC AND DIFFERENTIAL (08/29/2024 11:10 AM EMERGENCY VETERINARY TECHNICIAN) WHITE BLOOD CELL COUNT 5.6 3.8 - 10.8 Thousand/u L [facility] [facility] RED BLOOD CELL COUNT 5.22 4.20 - 5.80 Million/uL [facility] HEMOGLOBIN 14.7 13.2 - 17.1 g/dL [facility] HEMATOCRIT 45.0 38.5 - 50.0 % [facility] MCV 86.2 80.0 - 100.0 fL [facility] MCH 28.2 27.0 - 33.0 pg [facility] MCHC 32.7 32.0 - 36.0 g/dL [facility] Comment: For adults, a slight decrease in the calculated MCHC value (in the range of 30 to 32 g/dL) is most likely not clinically significant; however, it should be interpreted with caution in correlation with other red cell parameters and the patient's clinical condition. RDW 12.3 11.0 - 15.0 % [facility] PLATELET COUNT 255 140 - 400 Thousand/u L [facility] MPV 10.1 7.5 - 12.5 fL [facility] ABSOLUTE NEUTROPHILS 4,071 1,500 - 7,800 cells/uL [facility] ABSOLUTE LYMPHOCYTES 1,047 850 - 3,900 cells/uL [facility] ABSOLUTE MONOCYTES 319 200 - 950 cells/uL [facility] ABSOLUTE EOSINOPHILS 112 15 - 500 cells/uL [facility] ABSOLUTE BASOPHILS 50 0 - 200 cells/uL [facility] NEUTROPHILS 72.7 % [facility] LYMPHOCYTES 18.7 % [facility] MONOCYTES 5.7 % [facility] EOSINOPHILS 2.0 % [facility] BASOPHILS 0.9 % [facility] Blood BLOOD SPECIMEN / Unknown 08/29/2024 11:10 AM EMERGENCY VETERINARY TECHNICIAN 08/29/2024 11:10 AM EMERGENCY VETERINARY TECHNICIAN us Sonia Ji MD HEMATOLOGY Final Resul t [facility] [address] [facility] [place] [address], [facility] [address] [place] [address] * COMP METABOLIC PANEL (08/29/2024 11:10 AM EMERGENCY VETERINARY TECHNICIAN) [facility] GLUCOSE 96 65 - 99 mg/dL [facility] Comment: Fasting reference interval UREA NITROGEN (BUN) 7 7 - 25 mg/dL [facility] CREATININE 0.91 0.60 - 1.29 mg/dL [facility] EGFR 107 > OR = 60 mL/min/1. 73m2 [facility] BUN/CREATININE RATIO SEE NOTE: 6 - 22 (calc) [facility] Comment: Not Reported: BUN and Creatinine are within reference range. SODIUM 137 135 - 146 mmol/L [facility] POTASSIUM 3.9 3.5 - 5.3 mmol/L [facility] CHLORIDE 100 98 - 110 mmol/L [facility] CARBON DIOXIDE 29 20 - 32 mmol/L [facility] CALCIUM 9.6 8.6 - 10.3 mg/dL [facility] PROTEIN, TOTAL 7.5 6.1 - 8.1 g/dL [facility] ALBUMIN 4.8 3.6 - 5.1 g/dL [facility] GLOBULIN 2.7 1.9 - 3.7 g/dL (calc) [facility] ALBUMIN/GLOBULIN RATIO 1.8 1.0 - 2.5 (calc) [facility] BILIRUBIN, TOTAL 0.8 0.2 - 1.2 mg/dL [facility] ALKALINE PHOSPHATASE 72 36 - 130 U/L [facility] AST 20 10 - 40 U/L [facility] ALT 16 9 - 46 U/L [facility] Blood BLOOD SPECIMEN / Unknown 08/29/2024 11:10 AM EMERGENCY VETERINARY TECHNICIAN 08/29/2024 11:10 AM EMERGENCY VETERINARY TECHNICIAN us Sonia Ji MD CHEMISTRY Final Resul t [facility] [address] [place] [address], [facility] [address] [place] [address] * XR SHOULDER 3 VIEWS LEFT (08/20/2024 8:22 AM EMERGENCY VETERINARY TECHNICIAN) Anatomical Region Laterality Modality SHOULDERS, SHOULDER L Computed R adiography 08/20/2024 2:43 PM EMERGENCY VETERINARY TECHNICIAN Narrative 08/20/2024 2:43 PM EMERGENCY VETERINARY TECHNICIAN For Patients: As a result of the Cures Act, medical imaging exams and procedure reports are released immediately into your electronic medical record. You may view this report before your referring provider. If you have questions, please contact your health care provider. INDICATION: Left rotator cuff injury. TECHNIQUE: Three views of the left shoulder. FINDINGS: No left shoulder fracture or dislocation. Lateral downsloping of the acromion. Glenohumeral joint is normal. Dictated by Yasmany Ty MD @ 08/20/2024 2:43:03 PM (Electronically Signed) Procedure Note Yasmany Ty MD - 08/20/2024 For Patients: As a result of the Cures Act, medical imagingexams and procedure reports are released immediately into your electronicmedical record. You may view this report before your referring provider.If you have questions, please contact your health care provider. INDICATION: Left rotator cuff injury. TECHNIQUE: Three views of the left shoulder. FINDINGS: No left shoulder fracture or dislocation. Lateral downsloping of theacromion. Glenohumeral joint is normal. Dictated by Yasmany Ty MD @ 08/20/2024 2:43:03 PM (Electronically Signed) us Tami Priest DO GENERAL IMAGING Final Result * SCAN-CT INTERPRETATION (07/14/2024 12:00 AM EMERGENCY VETERINARY TECHNICIAN) Anatomical Region Laterality Modality Other us Scanner OTHER Final Result * LIPID PANEL W REFLEX MEASURED LDL (06/23/2023 12:03 PM CDT) CHOLESTEROL,TOTAL 170 100 - 199 mg/dL 06/23/2023 9:36 PM CDT [facility] Comment: Cholesterol, Total Reference Ranges Desirable <200 mg/dL Borderline 200-239 mg/dL High >=240 mg/dL TRIGLYCERIDES 104 <150 mg/dL 06/23/2023 9:36 PM CDT [facility] HDL CHOLESTEROL 66 >40 mg/dL 9:36 PM CDT [facility] NON-HDL CHOLESTEROL 104 <145 mg/dl 06/23/2023 9:36 PM CDT [facility] CHOL/HDL RATIO 2.58 <4.50 06/23/2023 9:36 PM CDT [facility] LDL CHOLESTEROL 83 <=130 mg/dL 06/23/2023 9:36 PM CDT [facility] VLDL CHOLESTEROL 21 <=30 mg/dL 06/23/2023 9:36 PM CDT [facility] PROVIDER ORDERED STATUS RANDOM 06/23/2023 9:36 PM CDT [facility] Blood BLOOD SPECIMEN / Unknown Venipuncture / Unknown 06/23/2023 12:03 PM CDT 06/23/2023 12:03 PM CDT us Melani Pachecot DO CHEMISTRY Final Resul t [facility] [address] [place] [address], * ANTI HCV (06/23/2023 12:03 PM CDT) HEPATITIS C ANTIBODY Non-Reacti ve Non-React stefan 06/23/2023 9:35 PM CDT [facility] Comment:Please note, per [...] 12:03 PM CDT 06/23/2023 12:03 PM CDT us Melani Barnes DO SEND OUTS Final Resul t [facility] [address] [place] [address], * ANTI HIV 1/2 (04/30/2012 9:54 AM CDT) ANTI HIV 1/2 Non-reacti ve [facility] Blood specimen (specimen) BLOOD SPECIMEN / Unknown 04/30/2012 9:54 AM CDT 04/30/2012 9:45 AM CDT us Melani Barnes DO SEND OUTS Final Resul t [facility] [place]NAL ZIP [phone] [place] [phone] from Last 3 Months or Most Recently Relevant to Health Maintenance Insurance [facility] Care Teams Culturist Relationship Specialty Start Date End Date [place] [address] PCP - General Family Practice 05/15/13
--- OUTSIDE RECORDS SUMMARY | 2024-09-01 08:24 | XMS_ITS | Continuity of Care Document ---
Author Name [facility] User [email or web address]low[employer] Address Unknown Organization Unknown Address Unknown Procedures FILTER APPLIED:Only known Procedures with Onset Date within the last 5 years Procedure Date Procedure Provider Additional Inform ation Status URINALYSIS AUTO W/O SCOPE (60503) Completed N.GONORRHOEAE DNA AMP PROB (30263) Completed CHLMYD TRACH DNA AMP PROBE (63849) Completed URINE CULTURE/COLONY COUNT (58092) Completed Encounters FILTER APPLIED:Only known Encounters with Admission Date within the last 5 years Encounter Location Admission Discharge Billing Code Lab Support Technician Randall ttender Outpatient Kelsi Childers
--- OUTSIDE RECORDS SUMMARY | 2024-09-01 08:24 | XMS_ITS | Data Portability ---
Author Organization [place] - [place] [facility], [facility] Address [address] [facility] [address] [place] [address] Care Team Providers Care [employer] Impregnating Range Tender Name Role Phone SHANIQUA DUKES ([place]) Primary Care Provider Assessment Encounter Date Assessment [...] CALL PT TO SCHEDULE 2023 024 [facility], [address] [place], [address], 10:59:44 testoste edie, total, serum - PLEASE CALL PT TO SCHEDULE 2023 024 [facility], [address] [place], [address], 4 10:59:45 shbg (sex hormone- binding globulin ), serum - PLEASE CALL PT TO SCHEDULE 2023 024 [email or web address] [facility], [address], [place], [address], 10:59:45 Referral None recorded . Procedures None recorded . Surgeries None recorded . Imaging US, duplex, penis, complete - PLEASE CALL PT TO SCHEDULE 2023 [email or web address] [facility], [address], [address], [place], [address], 11:00:25 Medication Orders None recorded . Patient TargetsNo targets recorded. Patient Instructions Encounter Date Encounter Id Patient Instructions Last Modified By Organization Details Last Modified Time 06/06/2024 [id number] We had a long discussion regarding the [...] in the form of penile prosthesis placement. [email or web address] Not available 05/27/2024 16:45:54 Reason for Referral None Reported. Results Created Date Observation Date Name Description Value Unit Range Abnormal Flag Note LastModifiedBy Organization Detail LastModifiedTime 07/30/20 24 07/31/2024 LH LH 3.9 mIU/m L 1.5-9. 3 normal Not Available [facility] [address] [place], [address], 07/31/2024 06:06:36 07/30/20 24 07/31/2024 TESTO STERO NE, TOTAL , MALES (ADUL T), IA testosterone , total, males (adult), ia 160 NG/dL 250-82 7 low In hypog onada l males , Testo stero ne, Total , LC/MS /MS, is the recom oleg d assay due to the dimin ished accur acy of immun oassa y at level s below 250 ng/dL . This test code (1598 3) must be colle cted in a red-t op tube with no gel. Not Available [facility] [address] [place], [address], 07/31/2024 06:06:37 07/30/20 24 07/31/2024 SEX HORMO NE ROCHELLE NG GLOBU KUSHAL sex hormone binding globulin 20 nmol/ L 10-50 normal Not Available [facility] [address], [address], 07/31/2024 06:06:38 08/09/20 24 08/10/2024 LH LH 4.0 mIU/m L 1.5-9. 3 normal Not Available [facility] [address] [place], [address], 08/10/2024 06:18:32 08/09/20 24 08/10/2024 SEX HORMO NE ROCHELLE NG GLOBU KUSHAL sex hormone binding globulin 21 nmol/ L 10-50 normal Not Available [facility] [address] [place], [address], 08/10/2024 06:18:32 08/09/20 24 08/10/2024 TESTO STERO NE, TOTAL , MALES (ADUL T),IA (REFL ) testosterone , total, males (adult), ia 128 NG/dL 250-82 7 low In hypog onada l males , Testo stero ne, Total , LC/MS /MS, is the recom oleg d assay due to the dimin ished accur acy of immun oassa y at level s below 250 ng/dL . This test code (1598 3) must be colle cted in a red-t op tube with no gel. Your reque st to have a [employer] copy faxed has been ackno ed ed. Queue d to: [phone] Not Available [facility] [address] [facility], [place], [address], 08/10/2024 06:18:32 06/13/20 24 06/13/2024 US, penis No observ ation record ed. [facility] [address] [place], [address], 06/18/2024 11:30:42 Result Notes None recorded. Procedures Surgical History None recorded. Imaging Results Imaging Date Name Status LastModified by Organiz ation Details LastModified Time 06/13/2024 US, penis completed [facility] [address] [place], [address], 06/18/2024 11:30:42 Procedure Notes None recorded. Medical [...] Updated DateTime 06/06/2024 182.88 cm 29.2 kg/m2 18567.36 g Gita Arias [facility] 06/06/2024 11:58:50 Social History Question Answer Notes LastModified by Organizat ion Details LastModified Time Tobacco Smoking Status Never Smoker [facility] 06/06/2024 12:01:12 What Is Your Level Of Alcohol Consumption? Heavy [email or web address] Information not available 06/06/2024 What Is Your Level Of Caffeine Consumption? None [email or web address] Information not available 06/06/2024 What Was The Date Of Your Most Recent Tobacco Screening? 06/06/2024 [email or web address] Information not available 06/06/2024 Have You Ever Been Counseled For Unhealthy Alcohol Use? No [email or web address] Information not available 06/06/2024 Do You Use Any Illicit Or Recreational Drugs? No [email or web address] Information not available 06/06/2024 How Many Days In The Past Year Have You Consumed 5 Or More Drinks? 100 Information no t available 06/06/2024 Sex: Unknown Functional Status None recorded. Mental Status None recorded. Family History Relationship Description Onset Age of this Age Resolved Age Notes LastModified by Organization Details LastModified Time Maternal Grandfather Family history of cancer of colon Not available 06/06 11:59:59 Paternal Grandmother Family history of cancer of colon Not available 06/06 11:59:59 Maternal Grandmother Family history of breast cancer [email or web address] Not available 06/06 12:00:16 Medical History Condition Response Other N High Blood Pressure N Kidney Stones Y Lung Disease N Depression Y GERD/Acid Reflux Y Diabetes N Sexually Transmitted Infection N Bleeding Disorder N Cancer N High Cholesterol N Heart Disease N Past Encounters Encounter ID Performer Location Encounter Start Date Encounter Closed Date Diagnosis/Indication Diagnosis SNOMED-CT Code Diagnosis ICD10 Code Diagnosis Note [id number] Nixon Ernandez MD [facility] [address] [place] [id number] 06/06/2024 11:46:12 06/07/2024 15:33:09 Erectile dysfunction 028388395 F52.21 - Will obtain hormone panel - Obtain Penile doppler US - We discussed the natural history of erectile dysfunctio n. - Encouraged to continue to follow with his PCP regarding general health maintenanc e as early onset erectile dysfunctio n may herald future cardiovasc ular event. - We discussed various treatment options and their mechanisms of action including: oral PDE-5i, vacuum erection device, intracaver nosal injection therapy, MUSE, and penile prosthesis . The risks and benefits of each course of action were discussed in detail. AUA guidelines suggest that all treatment options should be considered equal and choice of therapy should be individual ized. Reduced libido 0756345 R 68.82 - As above Health Concerns Section Related Observation LastModified by Organization Detai ls LastModified Time None Recorded Concern Status LastModified by Organization Details LastModified Time None Recorded Advance Directives Directive None Recorded Payers Encounter Date Sequence Insurance Name Policy Number Policy Campuzano Covered Member ID Campuzano Member ID Guarantor Name 06/06/2024 1 [facility] Luis Miguel Rodriguez [id number] Luis Miguel Rodriguez Notes Date Note Type [...] of the history. Nixon Ernandez MD [address], [place], [address], [facility] 06/06/2024 13:30:37
== END 2024-09-01 08:47 | disposition home or self-care (01) ==
PROVIDERS: Emergency Provider Student in an Organized Health Care Education/Training Program; PCP Family Medicine
DX: Z71.1 Person with feared health complaint in whom no diagnosis is made (principal)
CPT/HCPCS: 80306; 81003; 99282; 99283

== ENCOUNTER 2024-10-13 19:48 | Emergency (ER) | payer OTHER, SELFPAY ==
[2024-10-13 19:51] VITALS: BP 144/88; PULSE 118; RESP 16; TEMP 36.2; O2SAT 97; BMI 27.8
--- OUTSIDE RECORDS SUMMARY | 2024-10-13 19:51 | XMS_ITS | Clinical Summary ---
Author Organization [facility] Address [address] [place] [address] Care Team Providers Care Steel Pickler Name Role Phone Melani Barnes DO Primary Care Provider Allergies Active Allergy Reactions [...] 1 tsp by mouth once daily. 0 011 Active baclofen (LIORESAL) 10 mg tablet Take 10 mg by mouth 2 times daily. 5mg PO QAM, 10mg PO QPM 5 018 Active famotidine (PEPCID) 20 mg tabletIndicatio ns:Gastroesopha geal reflux disease with esophagitis without hemorrhage Take 1 Tablet (20 mg) by mouth at bedtime. 0 021 Active methylcellulose , Laxative, (Citrucel) 500 mg tabIndications: Irritable bowel syndrome with both constipation and diarrhea Take 1 Tablet by mouth once daily. 0 021 Active fexofenadine (Layne) 180 mg tabletIndicatio ns:Allergic rhinitis due to cats Take 180 mg by mouth once daily. 100 Tablet 3 025 Active pantoprazole (PROTONIX) 20 mg tabletIndicatio ns:Gastroesopha geal reflux disease with esophagitis without hemorrhage Take 1 Tablet (20 mg) by mouth once daily. 100 Tablet 3 025 Active cetirizine (ZYRTEC) 10 mg tablet Take 10 mg by mouth once daily. Active testosterone cypionate (DEPO-TESTOSTER ONE) 200 mg/mL injection Inject 200 mg every 2 weeks by intramuscular route. 025 Active venlafaxine (EFFEXOR XR) 75 mg cp24 Extended-Releas e capsuleIndicati ons:Severe episode of recurrent major depressive disorder, without psychotic features (HC),VICKY (generalized anxiety disorder),PTSD (post-traumatic stress disorder) Take 1 Capsule (75 mg) by mouth once daily with a meal. 90 Capsule 3 025 Active prazosin (MINIPRESS) 1 mg capsuleIndicati ons:PTSD (post-traumatic stress disorder),Night aguirre associated with chronic post-traumatic stress disorder Take 1-5 Capsules (1-5 mg) by mouth at bedtime. Start with 1mg and can increase every 3 days by 1mg if needed to max of 5mg nightly 90 Capsule 3 025 Active venlafaxine (EFFEXOR XR) 37.5 mg Extended-Releas e capsuleIndicati ons:Severe episode of recurrent major depressive disorder, without psychotic features (HC),VICKY (generalized anxiety disorder) Take 1 Capsule (37.5 mg) by mouth once daily with a meal for 7 days, THEN 2 Capsules (75 mg) once daily with a meal. 67 Capsule 025 2024 Discontinued venlafaxine (EFFEXOR XR) 37.5 mg Extended-Releas e capsuleIndicati ons:Severe episode of recurrent major depressive disorder, without psychotic features (HC),VICKY (generalized anxiety disorder) Take 1 Capsule (37.5 mg) by mouth once daily with a meal for 7 days, THEN 2 Capsules (75 mg) once daily with a meal. 60 Capsule 025 2024 Discontinued(* Medication adjustment) Active Problems Problem Noted Date Diagnosed Date [...] Encounters Date Type Department Care Team Description 10/10/2024 9:00 AM SILVER CLEANER Office Visit [facility] [address] [place] [address] Yue Romo [facility] Visit 10/10/2024 Orders Only [facility] [address] [place] [address] Melani Barnes DO <No scans attached> 10/10/2024 Travel 10/07/2024 9:00 AM SILVER CLEANER Office Visit [facility] [address] [place] [address] Melani Barnes DO Follow Up (mental health/) 10/07/2024 E-Consult [facility] [address] [place] [address] Anna Beard, 10/07/2024 Travel 10/05/2024 Travel 10/03/2024 9:00 AM SILVER CLEANER Office Visit [facility] [address] [place] [address] Yue Romo [facility] Visit 10/03/2024 Travel 09/30/2024 Refill [facility] [address] [place] [address] Sonia Ji MD Refill Request (Venlafaxine) 09/29/2024 Travel 09/12/2024 9:00 AM SILVER CLEANER Office Visit [facility] [address] [place] [address] Yue Romo [facility] Visit 09/11/2024 Travel 09/06/2024 10:40 AM SILVER CLEANER Office Visit [facility] [address] [place] [address] Melani Barnes, DO ER Follow up 09/06/2024 Travel 09/03/2024 Travel 09/03/2024 Telephone [facility] [address] [place] [address] Melani Barnes, DO ER Follow up 08/29/2024 10:00 AM SILVER CLEANER Office Visit [facility] [address] [place] [address] Sonia Ji MD Physical (44 Year Old man ); Urinary Problem (Darker urine ); Gi Problem (White/ Discolored BM) 08/29/2024 Travel 08/24/2024 Travel 08/20/2024 8:15 AM SILVER CLEANER Ancillary Procedure [facility] [address] [place] [address] 08/20/2024 7:40 AM SILVER CLEANER Office Visit [facility] [address] [place] [address] Tami Priest, Musculoskeletal Problem (LEFT shoulder pain - 2 months - 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 - gradually worsening - other day needed to prop it with a pillow and was difficult to move ) 08/20/2024 Travel 08/15/2024 Travel 08/09/2024 11:15 AM SILVER CLEANER Orders Only [facility] [address] [place] [address] Lab[facility] 08/09/2024 Nurse Triage [facility] [address] [place] [address] Melani Barnes, Shoulder Pain/problem 08/08/2024 Travel 08/07/[address] [facility] [address] [place] [address] [facility] (Orders) 07/29/2024 Travel 07/14/2024 Orders Only [facility] Scanner 1 scan: (1-Ord) [facility], CT ABDOMEN PELVIS WO CON, 07/14/2024 from Last 3 Months Immunizations Name Administration Dates Next Due COVID-19 vaccine ([employer]ech 30mcg/0.3mL) PF, MDV 12/11/2020,11/20/2020 DT (Age < 7 years) 03/14/1991 INFLUENZA, IIV3 PF (AGE >= 6 MO) 06/13/2024 Influenza, IIV3 (Age >=3 years) 08/19/2013,07/27 Influenza, IIV4 05/03/2023,,06/17/2021,07/04/20 18,08/16/2016,06/24/2015,07/04/2014 MMR 04/05/1993 Td (Age >=7 Years) [...] Answer Date Recorded PHQ-2 TOTAL SCORE 6 10/07/2024 Social Connections Answer Date Recorded Do you [...] is your housing situation today? 1 08/15/2024 Utilities Answer Date Recorded Do you have trouble paying f or utilities (for example, heat, electricity, water, phone)? 1 08/15/2024 Sex and Gender Information Value Date Recorded Sex Assigned at Not on file Legal Sex Male 8:02 AM SILVER CLEANER Gender Identity Not on file Sexual Orientation Not on file Obstetrics History Last Filed Vital Signs Vital Sign Reading Time Taken Comments Blood Pressure 146/84 10/07/2024 9:01 AM SILVER CLEANER Pulse 97 10/07/2024 9:01 AM SILVER CLEANER Temperature 37.5 C (99.5 F) 10/27/2023 11:29 AM SILVER CLEANER Respiratory Rate 14 05/24/2023 5:02 PM CDT Oxygen Saturation 97% 10/07/2024 9:01 AM SILVER CLEANER Inhaled Oxygen Concentration - - Weight 93.3 kg (205 lb 9.6 oz) 10/07/2024 9:01 A M SILVER CLEANER Height 185 cm (6' 0.84) 08/29/2024 9:57 AM SILVER CLEANER Body Mass Index 27.25 08/29/2024 9:57 AM SILVER CLEANER Plan of Treatment Upcoming Encounters Date Type Department Care Team (Late st Contact Info) Description 10/17/2024 9:30 AM SILVER CLEANER Office Visit [facility] [address] [place] [address] Yue Romo [facility] [address] [place] [address] 11/20/2024 3:55 PM CDT Office Visit [facility] [address] [place] [address] Melani Barnes DO [address] [place] [address] Health Maintenance Due Date Last Done Comments Tetanus booster 08/15/2025 08/15/2015, 10/20, 09/06/2001 BMI (ht and wt on same day) for age 18+ 08/29/2025 08/29/2024, 06/23/2023, 02/04/2022, Additional history exists Depression screening for age 12+ 10/10/2025 10/10/2024, 10/10/2024, 10/07/2024, Additional history exists Lipids for age 35-44 [...] COMP METABOLIC PANEL Routine 08/29/2024 11:10 AM SILVER CLEANER Routine medical exam CBC WITH AUTO DIFFERENTIAL Routine 08/29/2024 11:10 AM SILVER CLEANER Routine medical exam TSH WITH REFLEX Routine 08/29/2024 11:10 AM SILVER CLEANER Severe episode of recurrent major depressive disorder, without psychotic features (HC) XR SHOULDER 3 VIEWS LEFT Routine 08/20/2024 8:22 AM SILVER CLEANER Injury of left rotator cuff, initial encounter SCAN-CT INTERPRETATION 12:00 AM SILVER CLEANER ANTI HCV Routine 06/23/2023 12:03 PM CDT Need for hepatitis C screening test LIPID PANEL W REFLEX MEASURED LDL Routine 06/23/2023 12:03 PM CDT Lipid screening ANTI HIV 1/2 Routine 04/30/2012 9:54 AM CDT Screening for STD (sexually transmitted disease) from Last 3 Months or Most Recently Relevant to Health Maintenance Results * TSH WITH REFLEX (08/29/2024 11:10 AM SILVER CLEANER) TSH W/REFLEX TO FT4 0.68 0.40 - 4.50 mIU/L [employer] [employer] [facility] Blood BLOOD SPECIMEN / Unknown 08/29/2024 11:10 AM SILVER CLEANER 08/29/2024 11:10 AM SILVER CLEANER us Sonia Ji MD CHEMISTRY Final Resul t [employer] [facility] [address] [place] [address], [facility] [address] [place] [address] * CBC AND DIFFERENTIAL (08/29/2024 11:10 AM SILVER CLEANER) Pathologist [facility] WHITE BLOOD CELL COUNT 5.6 3.8 - 10.8 Thousand/u L [facility] [employer] [facility] RED BLOOD CELL COUNT 5.22 [...] BLOOD SPECIMEN / Unknown 08/29/2024 11:10 AM SILVER CLEANER 08/29/2024 11:10 AM SILVER CLEANER us Sonia Ji MD HEMATOLOGY Final Resul t [employer] [facility] [address] [place] [address], [facility] [address] [place] [address] * COMP METABOLIC PANEL (08/29/2024 11:10 AM SILVER CLEANER) Pathologist [facility] GLUCOSE 96 65 - 99 mg/dL [facility] [...] BLOOD SPECIMEN / Unknown 08/29/2024 11:10 AM SILVER CLEANER 08/29/2024 11:10 AM SILVER CLEANER us Sonia Ji MD CHEMISTRY Final Resul t [employer] [facility] [address] [place] [address], [facility] [address] [place] [address] * XR SHOULDER 3 VIEWS LEFT (08/20/2024 8:22 AM SILVER CLEANER) Anatomical Region Laterality Modality SHOULDERS, SHOULDER L Computed R adiography 08/20/2024 2:43 PM SILVER CLEANER Narrative 08/20/2024 2:43 PM SILVER CLEANER For Patients: As a result of the [...] @ 08/20/2024 2:43:03 PM (Electronically Signed) us Candicei Cem DO GENERAL IMAGING Final Result * SCAN-CT INTERPRETATION (07/14/2024 12:00 AM SILVER CLEANER) Anatomical Region Laterality Modality Other us Scanner OTHER Final Result * LIPID PANEL W REFLEX MEASURED LDL (06/23/2023 12:03 PM CDT) CHOLESTEROL,TOTAL 170 100 - 199 mg/dL 06/23/2023 9:36 PM CDT [facility] Comment: Cholesterol, Total Reference Ranges Desirable <200 mg/dL Borderline 200-239 mg/dL High >=240 mg/dL TRIGLYCERIDES 104 <150 mg/dL 06/23/2023 9:36 PM CDT [facility] HDL CHOLESTEROL 66 >40 mg/dL 9:36 PM CDT [facility] NON-HDL CHOLESTEROL 104 <145 mg/dl 06/23/2023 9:36 PM CDT [facility] CHOL/HDL RATIO 2.58 <4.50 06/23/2023 9:36 PM CDT [facility] LDL CHOLESTEROL 83 <=130 mg/dL 06/23/2023 9:36 PM CDT [facility] [employer] VLDL CHOLESTEROL 21 <=30 mg/dL 06/23/2023 9:36 PM CDT [facility] PROVIDER ORDERED STATUS RANDOM 06/23/2023 9:36 PM CDT [facility] Blood BLOOD SPECIMEN / Unknown Venipuncture / Unknown 06/23/2023 12:03 PM CDT 06/23/2023 12:03 PM CDT Melani Barnes DO CHEMISTRY Final Resul t Performing Organization Address [facility]/ZIP Co de Phone Number [facility] [address] [place] [address], * ANTI HCV (06/23/2023 12:03 PM CDT) HEPATITIS C ANTIBODY Non-Reacti ve Non-React stefan 06/23/2023 9:35 PM CDT [facility] Comment:Please note, per www .CDC.gov: [...] PM CDT Melani Barnes DO SEND OUTS Final Resul t Performing Organization Address [facility] Co de Phone Number [facility] [address] [place] [address], * ANTI HIV 1/2 (04/30/2012 9:54 AM CDT) ANTI HIV 1/2 Non-reacti ve [facility] Blood specimen (specimen) BLOOD SPECIMEN / Unknown 04/30/2012 9:54 AM CDT 04/30/2012 9:45 AM CDT Melani Barnes DO SEND OUTS Final Resul t Performing Organization Address City/[facility]/ZIP Co de Phone Number [facility] INTERNAL ZIP [phone] [place] [address] from Last 3 Months or Most Recently Relevant to Health Maintenance Insurance [facility] Care Teams Steel Pickler Relationship Specialty Start Date End Date Melani Barnes DO [address] [place] [address] PCP - General Family Practice 05/15/13
--- OUTSIDE RECORDS SUMMARY | 2024-10-13 19:51 | XMS_ITS | Data Portability ---
Author Organization [facility] Leslielo gy, [facility] Address [address] [place] [address] Care Team Providers Care Business Line Controller Name Role Phone [facility] ([facility]) Primary Care Provider Assessment Encounter Date Assessment [...] levels) Psychological factors (e.g., stress, anxiety, depression) Not available 06/06/2024 13:29:51 09/05/2024 09/05/2024 The patient is experiencing erectile dysfunction with associated intermittent numbness and loss of sensation. Differential diagnosis for erectile dysfunction includes but is not limited to: Vascular issues (e.g., insufficient blood flow or premature venous leakage) Neurological causes (e.g., nerve damage or compression) Hormonal imbalances (e.g., low testosterone levels) Psychological factors (e.g., stress, anxiety, depression) [email or web address] Not available 09/04/2024 14:36:41 Plan of Treatment Reminders Order Date Submit Date Provider Last Modified By Organization Details Last Modified Time Details Appointments None recorded . Lab PSA, serum or plasma [email or web address] [facility] [address], [place], [address], 10:40:46 lh (luteini zing hormone) , serum - PLEASE CALL PT TO SCHEDULE 2023 [facility], [address], [place], [address], 10:59:44 testoste edie, total, serum - PLEASE CALL PT TO SCHEDULE 2023 [facility], [address] [place], [address], 10:59:45 shbg (sex hormone- binding globulin ), serum - PLEASE CALL PT TO SCHEDULE 2023 [facility], [address] [place], [address], 10:59:45 Referral None recorded . Procedures None recorded . Surgeries None recorded . Imaging US, duplex, penis, complete - PLEASE CALL PT TO SCHEDULE [address] [facility], [address] [address], [place], [address], 11:00:25 Medication Orders testoste edie cypionat e 200 mg/mL intramus cular oil 2024 025 [email or web address] [id number], [address], [address], 5 11:06:35 testoste edie cypionat e 200 mg/mL intramus cular oil 2024 025 [email or web address] [id number], [address], [address], 5 13:59:12 Patient TargetsNo targets recorded. Patient Instructions Encounter Date Encounter Id Patient Instructions Last Modified By Organization Details Last Modified Time 06/06/2024 [id number] We had a long discussion regarding the [...] in the form of penile prosthesis placement. [email or web address] Not available 05/27/2024 16:45:54 09/05/2024 [id number] Testosterone Replacement Therapy (TRT) and testosterone denominational are both approaches used to address low testosterone levels, but they differ significantly in their methods and outcomes. Here s a breakdown of their risks and benefits: 1. Testosterone Replacement Therapy (TRT) TRT involves the direct administration of synthetic testosterone to raise levels in individuals with low testosterone. Benefits of TRT: Quick symptom relief: TRT can quickly alleviate symptoms of low testosterone such as fatigue, low libido, erectile dysfunction, depression, and reduced muscle mass. Consistent hormone levels: It provides a stable increase in testosterone levels, often leading to improvements in mood, energy, and overall well-being. Improved body composition: Increased muscle mass, reduced body fat, and improved bone density are common. Sexual function: TRT can improve sexual desire and function. Risks of TRT: Suppression of natural testosterone production: The body s natural testosterone production can shut down due to negative feedback mechanisms, leading to testicular shrinkage and infertility. Potential cardiovascular risks: Some studies suggest TRT might increase the risk of heart attacks, strokes, and other cardiovascular events, although this is debated. Polycythemia: TRT can increase red blood cell production, raising the risk of blood clots. Prostate concerns: There are theoretical concerns about stimulating prostate cancer growth, though no definitive evidence links TRT to an increased risk of prostate cancer. Sleep apnea: TRT may exacerbate or contribute to obstructive sleep apnea in susceptible individuals. Acne and skin reactions: Some users experience acne, oily skin, or injection site reactions depending on the delivery method. 2. Testosterone Cheondoism Testosterone denominational focuses on boosting the body's natural ability to produce testosterone without introducing synthetic hormones. This is often done through lifestyle interventions, medications like clomiphene citrate, anastrozole, or human chorionic gonadotropin (hCG). Benefits of Testosterone Cheondoism: Preserves fertility: Since this method stimulates the body s own testosterone production, it typically does not impair sperm production or fertility. Avoids testosterone shutdown: Unlike TRT, it supports natural hormone production and avoids the shutdown of testicular function. Fewer hormone fluctuations: Cheondoism avoids the peaks and troughs in hormone levels that may occur with TRT. Lower cardiovascular risks: As it doesn t involve introducing external testosterone, it may carry a lower risk of cardiovascular complications. Fewer prostate concerns: The risk to the prostate is thought to be lower since natural testosterone levels are being restored rather than elevated to supraphysiologic levels. Risks of Testosterone Cheondoism: Slower onset of effects: Testosterone denominational can take longer to relieve symptoms compared to TRT. Variable efficacy: Not everyone responds well to methods aimed at restoring natural testosterone production, especially if the underlying cause of low testosterone is testicular failure or primary hypogonadism. Potential side effects of medications: Drugs like clomiphene or hCG can cause side effects such as mood swings, vision issues, gynecomastia (breast tissue development), or other hormonal imbalances. Limited improvement: For individuals with severe or irreversible causes of low testosterone (e.g., age-related decline or testicular injury), denominational may not fully normalize testosterone levels. Summary: TRT is effective for rapid symptom relief and hormone optimization but comes with potential risks like infertility and cardiovascular concerns. It s ideal for men who no longer plan to have children or whose natural testosterone production is insufficient despite attempts at denominational. Testosterone denominational is a more natural approach that maintains fertility and may pose fewer risks, but it s slower and may not work for everyone, especially in cases of primary hypogonadism. Deciding between TRT and testosterone denominational should be personalized, considering the patient s age, fertility desires, underlying causes of low testosterone, and risk factors for cardiovascular disease. Not available 09/05/2024 08:34:44 Reason for Referral None Reported. Results Created Date Observation Date Name Description Value Unit Range Abnormal Flag Note LastModifiedBy Organization Detail LastModifiedTime 07/30/2007/31/2024 LH LH 3.9 mIU/m L 1.5-9. 3 normal Not Available [facility] [address] [place], [address], 07/31/2024 06:06:36 07/30/20 24 07/31/2024 TESTO STERO [...] op tube with no gel. Not Available [facility] [address] [place], [address], 07/31/2024 06:06:37 07/30/20 24 07/31/2024 SEX HORMO NE ROCHELLE NG GLOBU KUSHAL sex hormone binding globulin 20 nmol/ L 10-50 normal Not Available [facility] [address] [place], [address], 07/31/2024 06:06:38 08/09/20 24 08/10/2024 LH LH 4.0 mIU/m L 1.5-9. 3 normal Not Available [facility] [address] [place], [address], 08/10/2024 06:18:32 08/09/20 24 08/10/2024 SEX HORMO NE ROCHELLE NG GLOBU KUSHAL sex hormone binding globulin 21 nmol/ L 10-50 normal Not Available [facility] [address] [place], [address], 08/10/2024 06:18:32 08/09/20 24 08/10/2024 TESTO STERO [...] gel. Your reque st to have a [employer] ron copy faxed has been ofe ambrocio ed. Queue d to: [phone] Not Available [facility] [address] [place], [address], 08/10/2024 06:18:32 09/05/19 25 09/05/2024 PSA, serum or plasm a PSA 1.9 ng/mL 0-4.0 NG/mL Not Available [facility] [address], [place], [address], 09/05/2024 10:27:21 06/13/20 24 06/13/2024 US, penis No observ ation record ed. [email or web address] [facility] [address] [place], [address], 09/05/2024 11:07:51 Result Notes None recorded. Procedures Surgical History Date Name Laterality Status Provider Name and Address Organization Details Recorded Time 09/05/19 25 Testosterone Injection completed Gita Arias [facility] 09/05/2024 11:05:46 09/05/19 25 Blood Draw/FIRE CHIEF DEPUTY/PSA RESULTS completed Gita Arias [facility] 09/05/2024 10:27:08 Imaging Results Imaging Date Name Status LastModified by Organiz ation Details LastModified Time 06/13/2024 [email or web address] [address] [place], [address], 09/05/2024 11:07:51 Procedure Notes None recorded. Medical Equipment None Reported. Allergies No known drug allergies Medications Name Sig Start Date Stop Date Status Note LastModified by Organization Details LastModified Time venlafaxine ER 37.5 mg capsule,ext ended release 24 hr Take 1 Capsule (37.5 mg) by mouth once daily with a meal for 7 days, THEN 2 Capsules (75 mg) once daily with a meal.* active Not Available Not Available No t Available famotidine 40 mg tablet TAKE ONE TABLET BY MOUTH AT BEDTIME* active Not Available Not Available No t Available fexofenadin e 180 mg tablet TAKE ONE TABLET BY MOUTH ONE TIME DAILY* active Not Available Not Available No t Available pantoprazol e 20 mg tablet,cheryl yed release TAKE ONE TABLET BY MOUTH ONE TIME DAILY* active Not Available Not Available No t Available oxycodone-a cetaminophe n 5 mg-325 mg tablet TAKE one to TWO TABLETS BY MOUTH EVERY FOUR to six HOURS NEEDED FOR PAIN* 09/05 completed Not Available Not Available Not Available tamsulosin 0.4 mg capsule TAKE ONE CAPSULE BY MOUTH ONE TIME DAILY NEEDED FOR MUSCLE SPASM* 09/05 completed Not Available Not Available Not Available baclofen 10 mg tablet TAKE ONE TABLET BY MOUTH TWICE DAILY BEFORE MEALS* active Not Available Not Available No t Available pantoprazol e 40 mg tablet,cheryl yed release TAKE ONE TABLET BY MOUTH ONE TIME DAILY* 09/05 completed Not Available Not Available Not Available oseltamivir 75 mg capsule TAKE ONE CAPSULE BY MOUTH TWICE DAILY FOR 5 DAYS* 06/06 completed Not Available Not Available Not Available testosteron e cypionate 200 mg/mL intramuscul ar oil Inject 1 ml every 2 weeks by intramusc ular route.* active Not Available Not Available No t Available Vitals Date Recorded Body height Body mass index (BMI) Body weight Provider Name and Address Organization Details Last Updated DateTime 06/06/2024 182.88 cm 29.2 kg/m2 71382.36 g Gitajohnny Arias [facility] 06/06/2024 11:58:50 Date Recorded Body height Body mass index (BMI) Body weight Provider Name and Address Organization Details Last Updated DateTime 09/05/2024 182.88 cm 27.1 kg/m2 07871.47 g Gita Juana [facility] 09/05/2024 10:26:10 Social History Question Answer Notes LastModified by Jewel [employer]oned[employer]uth [employer] ion Details LastModified Time Tobacco Smoking Status Never [facility] 06/06/2024 12:01:12 What Is Your Level Of Alcohol Consumption? Heavy [email or web address] Information not available 06/06/2024 What Is Your Level Of Caffeine Consumption? None [email or web address] Information not available 06/06/2024 What Was The Date Of Your Most Recent Tobacco Screening? 09/05/2024 [email or web address] Information not available 09/05/2024 Have You Ever Been Counseled For Unhealthy Alcohol Use? No [email or web address] Information not available 06/06/2024 Do You Use Any Illicit Or Recreational Drugs? No [email or web address] Information not available 06/06/2024 How Many Days In The Past Year Have You Consumed 5 Or More Drinks? 100 [email or web address] Information no t available 06/06/2024 Sex: Male Functional Status None recorded. Mental Status None recorded. Family History Relationship Description Onset Age of this Age Resolved Age Notes LastModified by Organization Details LastModified Time Maternal Grandfather Family history of cancer of colon [email or web address] Not available 06/06 11:59:59 Paternal Grandmother Family history of cancer of colon [email or web address] Not available 06/06 11:59:59 Maternal Grandmother Family history of breast cancer [email or web address] Not available 06/06 12:00:16 Medical History Condition Response Other N High Blood Pressure N Kidney Stones Y Lung Disease N Depression Y GERD/Acid Reflux Y Sexually Transmitted Infection N Cancer N High Cholesterol N Diabetes N Bleeding Disorder N Heart Disease N Immunizations Vaccine Type Date Status Note Provider Nam e and Address Organization Details Recorded Time MMR 3 completed Gita Juana null, [facility] 09/05/2024 11:06:48 COVID-19, mRNA, LNP-S, PF, 30 mcg/0.3 mL dose 1 completed Gita Juana null, [facility] 09/05/2024 11:06:48 COVID-19, mRNA, LNP-S, PF, 30 mcg/0.3 mL dose 1 [facility] 11:06:48 COVID-19, mRNA, LNP-S, PF, 30 mcg/0.3 mL dose 1 completed [facility] null, [facility] 09/05/2024 11:06:48 COVID-19, mRNA, LNP-S, bivalent, PF, 30 mcg/0.3 mL dose 2 completed Gita Juana null, [facility] 09/05/2024 11:06:48 COVID-19, mRNA, LNP-S, PF, guillermina-sucrose, 30 mcg/0.3 mL 3 completed Gita Juana null, [facility] 09/05/2024 11:06:48 DT (pediatric) 1 completed Gita Juana null, [facility] 09/05/2024 11:06:48 Tdap 3 completed Gita Juana null, [facility] 09/05/2024 11:06:48 Tdap 5 [facility] 11:06:48 Influenza, split virus, trivalent, preservative 2 completed Gita Juana null, [facility] 09/05/2024 11:06:48 Influenza, split virus, trivalent, preservative 3 completed Gita Juana null, [facility] 09/05/2024 11:06:49 Td (adult), 2 Lf tetanus toxoid, preservative free, adsorbed 2 completed Gita Juana null, [facility] 09/05/2024 11:06:49 Influenza, split virus, quadrivalent, PF 3 completed Gita Juana null, [facility] 09/05/2024 11:06:49 Influenza, split virus, quadrivalent, PF 2 completed Gita Juana null, [facility] 09/05/2024 11:06:49 Influenza, split virus, quadrivalent, PF 1 completed Gita Juana null, [facility] 09/05/2024 11:06:49 Influenza, split virus, quadrivalent, PF 5 completed Gita Juana null, [facility] 09/05/2024 11:06:49 Influenza, split virus, quadrivalent, PF 4 completed Gita Juana null, [facility] 09/05/2024 11:06:49 Influenza, split virus, quadrivalent, PF 8 completed Gita Juana null, [facility] 09/05/2024 11:06:49 Influenza, split virus, quadrivalent, PF 6 completed Gita Juana null, [facility] 09/05/2024 11:06:49 Past Encounters Encounter ID Performer Location Encounter Start Date Encounter Closed Date Diagnosis/Indication Diagnosis SNOMED-CT Code Diagnosis ICD10 Code Diagnosis Note [id number] Nixon Ernandez MD [facility] [address] [place] [address] 06/06/2024 11:46:12 06/07/2024 15:33:09 Erectile dysfunction 951884431 F52.21 - Will obtain hormone panel - [...] therapy should be individual ized. Reduced libido 5181588 R 68.82 - As above [id number] Nixon Ernandez MD [facility] [address] [place] [address] 09/05/2024 10:15:55 09/10/2024 09:16:36 Erectile dysfunction 146778196 F52.21 - Hormone panel reveals hypogonadi sm - Penile doppler US without vasculogen ic etiology - We discussed the natural history of [...] therapy should be individual ized. Reduced libido 6084444 R 68.82 - As above Hypogonadism 97862396 E2 9.1 - More interested in replacemen t- Will start trial of 200 mg testostero ne cypionate every 2 weeks. Follow up with me in 6-8 weeks to assess efficacy and discuss other replacemen t options. Screening for malignant neoplasm of prostate 243329282 Z12.5 - PSA today 1.9 ng/mL Health Concerns Section Related Observation LastModified by Organization Detai ls LastModified Time None Recorded Concern Status LastModified by Organization Details LastModified Time None Recorded Advance Directives Directive None Recorded Payers Encounter Date Sequence Insurance Name Policy Number Policy Campuzano Covered Member ID Campuzano Member ID Guarantor Name 06/06/2024 1 [facility] Luis Miguel Rodriguez [id number] Luis Miguel Rodriguez 09/05/2024 1 [facility] Luis Miguel Rodriguez [id number] Luis Miguel Rodriguez Notes Date Note Type Note Provider Name and Address Organization Details Recorded Time 06/06/2024 text/html Mr. Rodriguez is a very pleasant 44 year old male who is referred to [facility] for erectile dysfunction. The patient reports experiencing [...] some of the history. Nixon Ernandez MD [address] [place] [address],[address], [address], [facility] 06/06/2024 13:30:37 09/05/2024 text/html 06/06/2024: Mr. Rodriguez is a very pleasant 44 year old male who is referred to me for erectile dysfunction.The patient reports experiencing issues with erectile dysfunction [...] his who provides some of the history. 09/05/2024:Here for follow up chronic ED, reduced libido, and hypogonadism. Penile duplex US shows good inflow/outflow. Interested in discussing hypogonadism treatment. He had two low testosterone labs on 07/30/24 (160) and 08/09/24 (128) Nixon Ernandez MD [address] [place] [address],[address], [place], [address], [facility] 09/05/2024 13:59:48
--- OUTSIDE RECORDS SUMMARY | 2024-10-13 19:51 | XMS_ITS | Continuity of Care Document ---
Author Organization [facility], [facility] Address [address] [place] [address] Care Team Providers Care Gas Tender Name Role Phone [facility] ([facility]) Primary Care Provider Assessment Encounter Date Assessment Date Assessment LastModified by Organization Details LastModified Time 09/05/2024 09/05/2024 The patient is experiencing erectile dysfunction with associated intermittent numbness and loss of sensation. Differential diagnosis for erectile dysfunction includes but is not limited to: Vascular issues (e.g., insufficient blood flow or premature venous leakage) Neurological causes (e.g., nerve damage or compression) Hormonal imbalances (e.g., low testosterone levels) Psychological factors (e.g., stress, anxiety, depression) [email or web address] Not available 09/04/2024 14:36:41 Plan of Treatment Reminders Order Date Submit Date Provider Last Modified By Organization Details Last Modified Time Details Appointments None recorded. Lab PSA, serum or plasma 2024 025 [email or web address] 4 [facility], [address], [place], [address], 10:40:46 Referral None recorded. Procedures None recorded. Surgeries None recorded. Imaging None recorded. Medication Orders testosteron e cypionate 200 mg/mL intramuscul ar oil 2024 025 [email or web address] 4 [id number], [address] [address], [place], [address], 11:06:35 testosteron e cypionate 200 mg/mL intramuscul ar oil 2024 025 YESSY [facility][id number], [address], [address], 13:59:12 Patient TargetsNo targets recorded. Patient Instructions Encounter Date Encounter Id Patient Instructions Last Modified By Organization Details Last Modified Time 09/05/2024 [id number] Testosterone Replacement Therapy (TRT) and testosterone taoist are both approaches used to address low [...] depending on the delivery method. 2. Testosterone Yarsanism Testosterone taoist focuses on boosting the body's natural ability to produce testosterone without introducing synthetic hormones. This is often done through lifestyle interventions, medications like clomiphene citrate, anastrozole, or human chorionic gonadotropin (hCG). Benefits of Testosterone Yarsanism: Preserves fertility: Since this method stimulates the body s own testosterone production, it typically does not impair sperm production or fertility. Avoids testosterone shutdown: Unlike TRT, it supports natural hormone production and avoids the shutdown of testicular function. Fewer hormone fluctuations: Yarsanism avoids the peaks and troughs in hormone levels that may occur with TRT. Lower cardiovascular risks: As it doesn t involve introducing external testosterone, it may carry a lower risk of cardiovascular complications. Fewer prostate concerns: The risk to the prostate is thought to be lower since natural testosterone levels are being restored rather than elevated to supraphysiologic levels. Risks of Testosterone Yarsanism: Slower onset of effects: Testosterone taoist can take longer to relieve symptoms compared [...] testosterone (e.g., age-related decline or testicular injury), taoist may not fully normalize testosterone levels. Summary: TRT is effective for rapid symptom relief and hormone optimization but comes with potential risks like infertility and cardiovascular concerns. It s ideal for men who no longer plan to have children or whose natural testosterone production is insufficient despite attempts at taoist. Testosterone taoist is a more natural approach that maintains fertility and may pose fewer risks, but it s slower and may not work for everyone, especially in cases of primary hypogonadism. Deciding between TRT and testosterone taoist should be personalized, considering the patient s age, fertility desires, underlying causes of low testosterone, and risk factors for cardiovascular disease. [email or web address] Not available 09/05/2024 08:34:44 Reason for Referral None Reported. Results Created Date Observation Date Name Description Value Unit Range Abnormal Flag Note LastModifiedBy Organization Detail LastModifiedTime 09/05/1909/05/2024 PSA, serum or plasm a PSA 1.9 ng/mL 0-4.0 NG/mL Not Available [facility] [address], [place], [address], 09/05/2024 10:27:21 Result Notes None recorded. Procedures Surgical History Date Name Laterality Status Provider Name and Address Organization Details Recorded Time 09/05/19 Testosterone Injection completed Gita Arias [facility] 09/05/2024 11:05:46 09/05/19 25 Blood Draw/HEALTH SOCIAL WORK PROFESSOR/PSA RESULTS completed Gita Arias [facility] 09/05/2024 10:27:08 Imaging Results None recorded. Procedure Notes None recorded. Medical Equipment None [...] Updated DateTime 09/05/2024 182.88 cm 27.1 kg/m2 48318.47 g Gita Arias [facility] 09/05/2024 10:26:10 Social History Question Answer Notes LastModified by Organizat ion Details LastModified Time Tobacco Smoking Status Never Smoker Gitajohnny torres, [facility] 06/06/2024 12:01:12 What Is Your Level Of Alcohol Consumption? Heavy [email or web address] Information not available 06/06/2024 What Is Your Level Of Caffeine Consumption? None [email or web address] Information not available 06/06/2024 What Was The Date Of Your Most Recent Tobacco Screening? 09/05/2024 [email or web address] Information not available 09/05/2024 Have You Ever Been Counseled For Unhealthy Alcohol Use? No [email or web address] Information not available 06/06/2024 Do You Use Any Illicit Or Recreational Drugs? No [email or web address] Information not available 06/06/2024 How Many Days In The Past Year Have You Consumed 5 Or More Drinks? 100 Information no t available 06/06/2024 Sex: Male Functional Status None recorded. Mental Status None recorded. Family History Relationship Description Onset Age of this Age Resolved Age Notes LastModified by Organization Details LastModified Time Maternal Grandfather Family history of cancer of colon [email or web address] Not available 06/06 11:59:59 Paternal Grandmother Family history of cancer of colon [email or web address] Not available 06/06 11:59:59 Maternal Grandmother Family history of breast cancer [email or web address] Not available 06/06 12:00:16 Medical History Condition Response Other N High Blood Pressure N Kidney Stones Y Lung Disease N Depression Y GERD/Acid Reflux Y Sexually Transmitted Infection N Cancer N High Cholesterol N Diabetes N Bleeding Disorder N Heart Disease N Immunizations Vaccine Type Date Status Note Provider Nam e and Address Organization Details Recorded Time [facility] 3 [facility] 11:06:48 COVID-19, mRNA, LNP-S, PF, 30 mcg/0.3 mL dose 1 [facility]24 11:06:48 COVID-19, mRNA, LNP-S, PF, 30 mcg/0.3 mL dose 1 completed Gita torres [facility] 09/05/2024 11:06:48 COVID-19, mRNA, LNP-S, PF, 30 mcg/0.3 mL dose 1 completed Gita Juana null, [facility] 09/05/2024 11:06:48 COVID-19, mRNA, LNP-S, bivalent, PF, 30 mcg/0.3 mL dose 2 completed Gita Juana null, [facility] 09/05/2024 11:06:48 COVID-19, mRNA, LNP-S, PF, guillermina-sucrose, 30 mcg/0.3 mL 3 completed Gita Juana null, [facility] 09/05/2024 11:06:48 DT (pediatric) 1 completed Gita Juana null, [facility] 09/05/2024 11:06:48 Tdap 3 completed Gita Juana null, [facility] 09/05/2024 11:06:48 Tdap 5 completed Gita Juana null, [facility] 09/05/2024 11:06:48 Influenza, split virus, trivalent, preservative 2 completed Gita Juana null, [facility] 09/05/2024 11:06:48 Influenza, split virus, trivalent, preservative 3 completed Gita Juana null, [facility] 09/05/2024 11:06:49 Td (adult), 2 Lf tetanus toxoid, preservative free, adsorbed 2 completed Gita Juana null, [facility] 09/05/2024 11:06:49 Influenza, split virus, quadrivalent, PF 3 completed Gita Juana null, [facility] 09/05/2024 11:06:49 Influenza, split virus, quadrivalent, PF 2 completed Gita Juana null, [facility] 09/05/2024 11:06:49 Influenza, split virus, quadrivalent, PF 1 completed Gita Juana null, [facility] 09/05/2024 11:06:49 Influenza, split virus, quadrivalent, PF 5 completed Gita Juana null, [facility] 09/05/2024 11:06:49 Influenza, split virus, quadrivalent, PF 4 completed Gita Juana null, [facility] 09/05/2024 11:06:49 Influenza, split virus, quadrivalent, PF 8 completed Gita Juana null, [facility] 09/05/2024 11:06:49 Influenza, split virus, quadrivalent, PF 6 completed Gita Juana null, [facility] 09/05/2024 11:06:49 Past Encounters Encounter ID Performer Location Encounter Start Date Encounter Closed Date Diagnosis/Indication Diagnosis SNOMED-CT Code Diagnosis ICD10 Code Diagnosis Note [id number] Nixon Ernandez MD [facility] [address] [place] [address] 09/05/2024 10:15:55 09/10/2024 09:16:36 Erectile dysfunction 406356121 F52.21 - Hormone panel reveals hypogonadi sm [...] therapy should be individual ized. Reduced libido 4792707 R 68.82 - As above Hypogonadism 29746100 E2 9.1 - More interested in replacemen t- Will start trial of 200 mg testostero ne cypionate every 2 weeks. Follow up with me in 6-8 weeks to assess efficacy and discuss other replacemen t options. Screening for malignant neoplasm of prostate 043083688 Z12.5 - PSA today 1.9 ng/mL Health Concerns Section Related Observation LastModified by Organization Detai ls LastModified Time None Recorded Concern Status LastModified by Organization Details LastModified Time None Recorded Payers Encounter Date Sequence Insurance Name Policy Number Policy Campuzano Covered Member ID Campuzano Member ID Guarantor Name 09/05/2024 1 [facility] Luis Miguel Rodriguez [id number] Luis Miguel Rodriguez Notes Date Note Type Note Provider Name and Address Organization Details Recorded Time 09/05/2024 [email or web address] 06/06/2024: Mr. Rodriguez is a [...] (160) and 08/09/24 (128) Nixon Ernandez MD [address] [place] [address],[address], [place], [address], [facility] 09/05/2024 13:59:48
--- NOTE | 2024-10-13 20:45 | ED_ITS ---
HPI - Wound/Laceration General Time Seen by Provider: 20:45 Date Seen: 10/13/24 Chief Complaint: Laceration/Wound Stated Complaint: left wrist cut yesterday won't stop bleeding Time Seen by Provider: 10/13/24 20:45 Source: patient and RN notes reviewed Mode of arrival: ambulatory Limitations: no limitations History of Present Illness HPI narrative: This 44-year-old male is coming into the ER with bleeding left wrist wound. He cut his left wrist yesterday during the day while doing dishes. Did not realize the the knife blade with sticking up and it punctured him in the wrist. He did get the bleeding to stop, had it bandaged. He notes that tonight it started bleeding again, would not stop. He was given a pressure dressing in triage which seemed to control the bleeding. Nursing staff did look up his tetanus and his last tetanus was 08/15/2015. He does agree to have this updated. Related Data Home Medications ?Medication ?Instructions ?Recorded ?Confirmed baclofen 10 mg tablet 10 mg PO BID 05/28/23 05/28/23 famotidine 20 mg tablet (Acid 20 mg PO BID 05/28/23 05/28/23 Equal Opportunity Officer (famotidine)) pantoprazole 40 mg tablet,delayed 40 mg PO DAILY 05/28/23 05/28/23 release Previous Rx's ?Medication ?Instructions ?Recorded fluconazole 200 mg tablet 200 mg PO Q72H #2 tabs 05/28/23 (Diflucan) oxycodone-acetaminophen 5 mg-325 1 - 2 tab PO Q4-6H PRN pain #10 07/14/24 mg tablet (Percocet) tabs tamsulosin 0.4 mg capsule (Flomax) 0.4 mg PO DAILY PRN for spasm #15 07/14/24 caps cephalexin 500 mg tablet 500 mg PO TID #15 tabs 10/13/24 Allergies Allergy/AdvReac Type Severity Reaction Status Date / Time No Known Drug Allergies Allergy Verified 05/28/23 09:29 Review of Systems Narrative: As per HPI. PFSH PFS Medical History Balanitis ?N48.1 - Balanitis (ICD-10) Dysuria ?R30.0 - Dysuria (ICD-10) Social History Smoking Status: Never smoker Do you use any of these nicotine containing products: None Second hand tobacco smoke exposure: No How often do you have a drink containing alcohol: never AUDIT-C Alcohol total score: 0 Non-prescribed substance use: denies use Exam Const: Vital Signs, click to edit/add: Vital Signs - 24 hr 10/13/24 19:51 10/13/24 21:21 10/13/24 21:21 Temperature 97.2 F L 97.2 F L 98.0 F Pulse Rate [Left P ulse Oximeter] 118 H 89 89 Respiratory Rate 16 16 16 Blood Pressure [Ri ght Upper Arm] 144/88 H 135/74 135/74 Pulse Oximetry 97 97 Oxygen Delivery Me thod Room Air Room Air This 44-year-old male is alert, interactive, no apparent distress. He has normal sensation of his fingers distally to this injury. He has a pressure dressing overlying the wrist. As this is taken down, it has bled through some of the bottom layers of bandaging. The Band-Aid he had underneath is completely saturated. Underlying this is about a 1.5 cm vertical situated laceration just proximal to the wrist area on the volar surface. There is active oozing from the wound. It is just into the subcutaneous tissue. Wound edges are open about 2 mm but do easily reapproximate. Discussed with patient options. We could try to see if we can get the skin edges to stop bleeding but I cannot guarantee that with bandage changes or bumping the wound that bleeding may not be aggravated to start again. We did discuss that this wound is older, suturing does put him at increased risk of infection at this time. The bleeding is still actively happening. I think the likelihood of him having ongoing issues without closing this wound outweigh the risks, he understands that he will be placed on antibiotics to help prophylax this wound for infection. He has opted to close the wound with sutures. Documenting provider has reviewed patient's vital signs: yes Course Course ED Course: See above in physical exam. Vital Signs Vital signs: Initial Vital Signs Temperature 97.2 F L 10/13/24 19:51 Temperature Source Temporal Artery Scan 10/13/24 19:51 Pulse Rate 118 H 10/13/24 19:51 Pulse Rhythm Regular 10/13/24 19:51 Respiratory Rate 16 10/13/24 19:51 Blood Pressure 144/88 H 10/13/24 19:51 Blood Pressure Mean 106 H 10/13/24 19:51 Blood Pressure Position Sitting 10/13/24 19:51 Pulse Oximetry 97 10/13/24 19:51 Oxygen Delivery Method Room Air 10/13/24 19:51 Vital Signs Temperature 97.2 F L 10/13/24 19:51 Pulse Rate 118 H 10/13/24 19:51 Respiratory Rate 16 10/13/24 19:51 Blood Pressure 144/88 H 10/13/24 19:51 Pulse Oximetry 97 10/13/24 19:51 Oxygen Delivery Method Room Air 10/13/24 19:51 Temperature 98.0 F 10/13/24 21:21 Pulse Rate 89 10/13/24 21:21 Respiratory Rate 16 10/13/24 21:21 Blood Pressure 135/74 10/13/24 21:21 Pulse Oximetry 97 10/13/24 21:21 Oxygen Delivery Method Room Air 10/13/24 21:21 Medications Administered Medications: Discontinued Medications Generic Name Dose Route Start Last Admin Trade Name Freq PRN Reason Stop Dose Admin Diphtheria/Tetanus/Acell Pertussis 0.5 ml 10/13/24 21:06 10/13/24 21:14 Tetanus/Diphth/Pertussis 0.5 Ml Syringe IM 10/13/24 21:07 0.5 ml .ONCE ONE Administration Lidocaine/Epinephrine 5 ml 10/13/24 21:06 10/13/24 21:00 Lidocaine 1%-Epi 1:100,000 INFILTRATI 10/13/24 21:07 5 ml ONCE ONE Administration Discharge Plan Discharge Clinical Impression: Laceration of left wrist Patient Disposition: Home, Self-Care Condition: Stable Instructions: Laceration (ED) Additional Instructions: May shower and wash hands as usual but would otherwise avoid getting this wound wet. Avoid dishwater to this wound until completely healed. Need to start antibiotic tomorrow and take as prescribed to help prevent wound infection. You need to watch this wound closely and if there is concern for infection, seek re- evaluation. Stitches need removal in about 7-10 days, schedule clinic followup or could be seen in 1 of our urgent cares for suture removal if you cannot find a clinic to be seen in. Use bacitracin and bandages during the day to keep this wound clean and dry. Activity Level: Activity as Tolerated Prescriptions: New cephalexin 500 mg tablet 500 mg PO TID Qty: 15 0RF No Action pantoprazole 40 mg tablet,delayed release (DR/EC) 40 mg PO DAILY baclofen 10 mg tablet 10 mg PO BID famotidine [Acid Equal Opportunity Officer (famotidine)] 20 mg tablet 20 mg PO BID fluconazole [Diflucan] 200 mg tablet 200 mg PO Q72H Qty: 2 0RF tamsulosin [Flomax] 0.4 mg capsule 0.4 mg PO DAILY PRN (Reason: for spasm) Qty: 15 0RF oxycodone-acetaminophen [Percocet] 5-325 mg tablet 1 - 2 tab PO Q4-6H PRN (Reason: pain) Qty: 10 0RF Follow Up/Referrals: Melani Barnes DO [Primary Care Provider] - Stand Alone Forms: [facility] Info Instructions Procedures Laceration Laceration 1: Pre procedure diagnosis: Left wrist laceration Post procedure diagnosis: Same Site marking: not applicable Verification/time out: correct patient, correct site and correct procedure Name of person performing procedure: Radhika Longoria Site: upper extremity Side (If applicable): left Size (cm): 1.5 Description: linear and clean Depth: simple, single layer Local Anesthetic: lidocaine 1% and with epi Amount of anesthesia used (mL): 5 (About 3 mL infiltrated locally with good anesthesia results.) Pre-repair: wound explored and irrigated extensively (Wound was copiously scrubbed wound vehicle and equipment cleaner, did stimulate the bleeding of the wound in general, Betadine was then used.) Skin layer closed with: other (Ethilon) Size (cm): 4-0 Number of sutures: 5 Technique: simple, interrupted Wound cleansing: soap (And iodine) Estimated blood loss (if any): less than 5mls Conclusion: patient tolerated procedure
[2024-10-13] MEDS: LIDOCAINE 1%-EPI 1:100,000 5 ML INFILTRATI (21:00)
[2024-10-13] MEDS: TETANUS/DIPHTH/PERTUSSIS 0.5 ML SYRINGE IM (21:14)
[2024-10-13 21:21] VITALS: BP 135/74; PULSE 89; RESP 16; TEMP 36.2; TEMP 36.7; O2SAT 97
--- OUTSIDE RECORDS SUMMARY | 2024-10-13 21:23 | XMS_ITS | Clinical Summary ---
Author Organization [facility] Address [address] [place] [id number] Care Team Providers Care Shipping Receiving Manager Name Role Phone Melani Barnes DO Primary [...] Department Care Team Description 10/10/2024 9:00 AM OIL FIELD TESTER Office Visit [facility] [address] [place] [address] Yue Romo [facility] Visit 10/10/2024 Orders Only [facility] [address] [place] [address] Melani Barnes DO <No scans attached> 10/10/2024 Travel 10/07/2024 9:00 AM OIL FIELD TESTER Office Visit [facility] [address] [place] [address] Melani Barnes DO Follow Up (mental health/) 10/07/2024 [place] [facility] [address] [place] [address] Anna Beard, 10/07/2024 Travel 10/05/2024 Travel 10/03/2024 9:00 AM OIL FIELD TESTER Office Visit [facility] [address] [place] [address] Yue Romo [facility] Visit 10/03/2024 Travel 09/30/2024 Refill [facility] [address] [place] [address] Sonia Ji MD Refill Request (Venlafaxine) 09/29/2024 Travel 09/12/2024 9:00 AM OIL FIELD TESTER Office Visit [facility] [address] [place] [address] Yue Romo [facility] Visit 09/11/2024 Travel 09/06/2024 10:40 AM OIL FIELD TESTER Office Visit [facility] [address] [place] [address] Melani Barnes, DO ER Follow up 09/06/2024 Travel 09/03/2024 Travel 09/03/2024 Telephone [facility] [address] [place] [address] Melani Barnes, DO ER Follow up 08/29/2024 10:00 AM OIL FIELD TESTER Office Visit [facility] [address] [place] [address] Sonia Ji MD Physical (44 Year Old man ); Urinary Problem (Darker urine ); Gi Problem (White/ Discolored BM) 08/29/2024 Travel 08/24/2024 Travel 08/20/2024 8:15 AM OIL FIELD TESTER Ancillary Procedure [facility] [address] [place] [address] 08/20/2024 7:40 AM OIL FIELD TESTER Office Visit [facility] [address] [place] [address] Tami Priest, Musculoskeletal Problem (LEFT shoulder pain - 2 months - 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 - gradually worsening - other day needed to prop it with a pillow and was difficult to move ) 08/20/2024 Travel 08/15/2024 Travel 08/09/2024 11:15 AM OIL FIELD TESTER Orders Only [facility] [address] [place] [address] Lab, Farm [facility] 08/09/2024 Nurse Triage [facility] [address] [place] [address] Melani Barnes, Shoulder Pain/problem 08/08/2024 Travel 08/07/2024 Telephone [facility] [address] [place] [address] Lab[facility] (Orders) 07/29/2024 Travel 07/14/2024 Orders Only [facility] Scanner 1 scan: (1-Ord) [facility], CT ABDOMEN PELVIS WO CON, 07/14/2024 from Last 3 Months Immunizations Name Administration Dates Next Due COVID-19 vaccine ([employer] 30mcg/0.3mL) PF, MDV 12/11/2020,11/20/2020 DT (Age [...] on file Legal Sex Male 8:02 AM OIL FIELD TESTER Gender Identity Not on file Sexual Orientation Not on file Obstetrics History Last Filed Vital Signs Vital Sign Reading Time Taken Comments Blood Pressure 146/84 10/07/2024 9:01 AM OIL FIELD TESTER Pulse 97 10/07/2024 9:01 AM OIL FIELD TESTER Temperature 37.5 C (99.5 F) 10/27/2023 11:29 AM OIL FIELD TESTER Respiratory Rate 14 05/24/2023 5:02 PM CDT Oxygen Saturation 97% 10/07/2024 9:01 AM OIL FIELD TESTER Inhaled Oxygen Concentration - - Weight 93.3 kg (205 lb 9.6 oz) 10/07/2024 9:01 A M OIL FIELD TESTER Height 185 cm (6' 0.84) 08/29/2024 9:57 AM OIL FIELD TESTER Body Mass Index 27.25 08/29/2024 9:57 AM OIL FIELD TESTER Plan of Treatment Upcoming Encounters Date Type Department Care Team (Late st Contact Info) Description 10/17/2024 9:30 AM OIL FIELD TESTER Office Visit [facility] [address] [place] [address] Yue Romo [facility] [address] [place] [address] 11/20/2024 3:55 PM CDT Office Visit [facility] [address] [place] [address] Melani Barnes DO [address] [place] [address] Health Maintenance Due Date Last Done Comments [...] COMP METABOLIC PANEL Routine 08/29/2024 11:10 AM OIL FIELD TESTER Routine medical exam CBC WITH AUTO DIFFERENTIAL Routine 08/29/2024 11:10 AM OIL FIELD TESTER Routine medical exam TSH WITH REFLEX Routine 08/29/2024 11:10 AM OIL FIELD TESTER Severe episode of recurrent major depressive disorder, without psychotic features (HC) XR SHOULDER 3 VIEWS LEFT Routine 08/20/2024 8:22 AM OIL FIELD TESTER Injury of left rotator cuff, initial encounter SCAN-CT INTERPRETATION 12:00 AM OIL FIELD TESTER ANTI HCV Routine 06/23/2023 12:03 PM CDT Need for hepatitis C screening test LIPID PANEL W REFLEX MEASURED LDL Routine 06/23/2023 12:03 PM CDT Lipid screening ANTI HIV 1/2 Routine 04/30/2012 9:54 AM CDT Screening for STD (sexually transmitted disease) from Last 3 Months or Most Recently Relevant to Health Maintenance Results * TSH WITH REFLEX (08/29/2024 11:10 AM OIL FIELD TESTER) TSH W/REFLEX TO FT4 0.68 0.40 - 4.50 mIU/L [facility] Blood BLOOD SPECIMEN / Unknown 08/29/2024 11:10 AM OIL FIELD TESTER 08/29/2024 11:10 AM OIL FIELD TESTER us Sonia Ji MD CHEMISTRY Final Resul t [facility] [address] [place] [address], [facility] [address] [place] [address] * CBC AND DIFFERENTIAL (08/29/2024 11:10 AM OIL FIELD TESTER) Pathologist [facility] WHITE BLOOD CELL COUNT 5.6 3.8 - 10.8 Thousand/u L [facility] RED BLOOD CELL COUNT 5.22 [...] BLOOD SPECIMEN / Unknown 08/29/2024 11:10 AM OIL FIELD TESTER 08/29/2024 11:10 AM OIL FIELD TESTER us Sonia Ji MD HEMATOLOGY Final Resul t [facility] [address] [place] [address], [facility] [address] [place] [address] * COMP METABOLIC PANEL (08/29/2024 11:10 AM OIL FIELD TESTER) Pathologist [facility] GLUCOSE 96 65 - 99 mg/dL [facility] [...] BLOOD SPECIMEN / Unknown 08/29/2024 11:10 AM OIL FIELD TESTER 08/29/2024 11:10 AM OIL FIELD TESTER us Sonia Ji MD CHEMISTRY Final Resul t [facility] [address] [place] [address], [facility] [address] [place] [address] * XR SHOULDER 3 VIEWS LEFT (08/20/2024 8:22 AM OIL FIELD TESTER) Anatomical Region Laterality Modality SHOULDERS, SHOULDER L Computed R adiography 08/20/2024 2:43 PM OIL FIELD TESTER Narrative 08/20/2024 2:43 PM OIL FIELD TESTER For Patients: As a result of the [...] Result * SCAN-CT INTERPRETATION (07/14/2024 12:00 AM OIL FIELD TESTER) Anatomical Region Laterality Modality Other us Scanner OTHER Final Result * LIPID PANEL W REFLEX MEASURED LDL (06/23/2023 12:03 PM CDT) CHOLESTEROL,TOTAL 170 100 - 199 mg/dL 06/23/2023 9:36 PM CDT [facility] Comment: Cholesterol, Total Reference Ranges Desirable <200 mg/dL Borderline 200-239 mg/dL High >=240 mg/dL TRIGLYCERIDES 104 <150 mg/dL 06/23/2023 9:36 PM CDT [facility] HDL CHOLESTEROL 66 >40 mg/dL 9:36 PM CDT [facility] NON-HDL CHOLESTEROL 104 <145 mg/dl 06/23/2023 9:36 PM CDT [facility] CHOL/HDL RATIO 2.58 <4.50 06/23/2023 9:36 PM CDT [facility] LDL CHOLESTEROL 83 <=130 mg/dL 06/23/2023 9:36 PM CDT [facility] [employer] VLDL CHOLESTEROL 21 <=30 mg/dL 06/23/2023 9:36 PM CDT [facility] PROVIDER ORDERED STATUS RANDOM 06/23/2023 9:36 PM CDT [facility] Blood BLOOD SPECIMEN / Unknown Venipuncture / Unknown 06/23/2023 12:03 PM CDT 06/23/2023 12:03 PM CDT Melani Barnes DO CHEMISTRY Final Resul t Performing Organization Address [facility]/ZIP Co de Phone Number [facility] [address] [place] [address], * ANTI HCV (06/23/2023 12:03 PM CDT) HEPATITIS C ANTIBODY Non-Reacti ve Non-React stefan 06/23/2023 9:35 PM CDT [facility] Comment:Please note, per www [...] OUTS Final Resul t Performing Organization Address [facility] Co de Phone Number [facility] [address] [place] [address], * ANTI HIV 1/2 (04/30/2012 9:54 AM CDT) ANTI HIV 1/2 Non-reacti ve [facility] Blood specimen (specimen) BLOOD SPECIMEN / Unknown 04/30/2012 9:54 AM CDT 04/30/2012 9:45 AM CDT Melani Barnes DO SEND OUTS Final Resul t Performing Organization Address City/[facility]/ZIP Co de Phone Number [facility] INTERNAL ZIP [phone] [place] [address] from Last 3 Months or Most Recently Relevant to Health Maintenance Insurance [facility] Care Teams Shipping Receiving Manager Relationship Specialty Start Date End Date Melani Barnes DO [address] [place] [address] PCP - General Family Practice 05/15/13
== END 2024-10-13 21:22 | disposition home or self-care (01) ==
LOC: ED 21:21
PROVIDERS: Emergency Provider Family Medicine; PCP Family Medicine
DX: S61.512A Laceration without foreign body of left wrist, initial encounter (principal); W26.0XXA Contact with knife, initial encounter; Y93.G1 Activity, food preparation and clean up
CPT/HCPCS: 12001; 90471; 90715; 99283; 99284

== ENCOUNTER 2025-08-01 11:37 | Emergency (ER) | payer OTHER, SELFPAY ==
[2025-08-01 11:38] VITALS: BP 150/90; PULSE 89; RESP 18; TEMP 36.8; O2SAT 95
--- NOTE | 2025-08-01 12:02 | ED.GENADULT ---
HPI - General Adult General Date Seen: 08/01/25 Chief complaint: Laceration/Wound Stated complaint: LT Wrist cut Time Seen by Provider: 08/01/25 11:55 History of Present Illness HPI narrative: 45-year-old male presenting to the ER today with for a self-inflicted laceration to his left wrist. He presents by private car through the ER triage with concern that he cut his left wrist. He was really a suffering some emotional distress and used a kitchen knife to cut his own left wrist. He has a laceration that is approximately 1 in long, per report. No pulsatile bleeding. He inflicted the wound at about 1:00 a.m. last night. He is no longer suicidal or homicidal. No other injuries. He was evaluated in the ER in September 2024 for a left wrist laceration that was apparently related to an accident while doing the dishes. Tetanus was updated at that time. Today, he confides that he was untruthful at his last visit. That wound was in fact an intentional cutting episode. He was not suicidal but just cutting to relieve emotional stress. He has been dealing with depression, anxiety off and on for years but had been doing well on antidepressants up until this year. He has been struggling more for the past 10-12 months. He is actively working with a therapist and visits with them virtually twice a week and also working with a psychiatrist to get his meds adjusted. He had been doing better. No cutting or self harm since January. However just a couple of days ago his father was hospitalized with AML and a severe infection in his throat. He was told yesterday that his father's diagnosis may be terminal. That acute stressor really increased his anxiety and stress. Last night he was just overwhelmed and stressed so he cut himself with his kitchen knife in an effort to relieve the stress. He says he was not than, and is not now, suicidal. He regrets cutting himself and recognizes that he has been working with the with his therapist, but better coping strategies. He did have an alcoholic beverage last night which may have contributed to his impulsivity. His says that he really drinks alcohol, perhaps once or twice a week and that he is non alcoholic and is not really a problem for him. He agrees that he will of stain from alcohol, in order to reduce his impulsivity. He cut his wrist last night. No pulsatile bleeding. When he woke up this morning he noticed that the wound edges was gaping a little bit. He has already spoken was therapist about it and has a plan in place for protection. He has an appointment coming up with his psychiatrist as well. He came to the ER because he knows he needs stitches in his wrist. He has a laceration along the axis of his forearm that is about 2-3 cm long over the volar forearm. No associated numbness in the hand. No trouble flexion extension. The laceration is directly over the center of the wrist and is not over the radial or ulnar arteries. No active bleeding. Related Data Home Medications ?Medication ?Instructions ?Recorded ?Confirmed baclofen 10 mg tablet 10 mg PO BID 05/28/23 08/01/25 famotidine 20 mg tablet (Acid 20 mg PO BID 05/28/23 08/01/25 Metal Engineering Process Worker (famotidine)) pantoprazole 40 mg tablet,delayed 40 mg PO DAILY 05/28/23 08/01/25 release testosterone cypionate 200 mg/mL 200 mg IM Q2W 08/01/25 08/01/25 intramuscular oil Allergies Allergy/AdvReac Type Severity Reaction Status Date / Time No Known Drug Allergies Allergy Verified 08/01/25 11:45 [facility] Medical History Balanitis ?N48.1 - Balanitis (ICD-10) Dysuria ?R30.0 - Dysuria (ICD-10) Social History Smoking Status: Never smoker Do you use any of these nicotine containing products: None Second hand tobacco smoke exposure: No How often do you have a drink containing alcohol: never AUDIT-C Alcohol total score: 0 Non-prescribed substance use: denies use Exam Narrative: Exam Narrative: Constitutional: Appears well-developed and well-nourished. Alert. Conversant. Non toxic. HENT: Head: Atraumatic. Nose: Nose normal. Mouth/Throat: Oral mucosa is clear and moist. no trismus. Eyes: Conjunctivae normal. EOM normal. Pupils equal, round, and reactive to light. No scleral icterus. Neck: Normal range of motion. Neck supple. No tracheal deviation present. Cardiovascular: Normal rate, regular rhythm. No gallop. No friction rub. No murmur heard. Symmetric radial artery pulses Pulmonary/Chest: Effort normal. No stridor. No respiratory distress. No wheezes. No rales. No rhonchi . No tenderness. Musculoskeletal: RUE: Normal range of motion. No tenderness. No deformity LUE: There is a 3 cm linear laceration running along the axis of the forearm it is in the center of the volar wrist. It is not over the radial or ulnar arteries. It penetrates through the epidermis and dermis but not through the retinaculum. It is not down to the palmaris longus tendon or median nerve compartment. No foreign body. No active bleeding. Intact sensory function in the median, ulnar, radial the nerves. Normal distal cap refill. Normal Nasir's. Normal range of motion. No tenderness. No deformity RLE: Normal range of motion. No edema. No tenderness. No deformity LLE: Normal range of motion. No edema. No tenderness. No deformity Neurological: Alert and oriented to person, place, and time. Normal strength. CN II-VII intact. No sensory deficit. GCS eye subscore is 4. GCS verbal subscore is 5. GCS motor subscore is 6. Normal coordination Skin: Skin is warm and dry. No rash noted. No pallor. Normal capillary refill. Psychiatric: Normal mood. Normal affect. Const: Vital Signs, click to edit/add: Vital Signs - 24 hr 08/01/25 11:38 Temperature 98.2 F Pulse Rate [Right Pulse Oximeter] 89 Respiratory Rate 18 Blood Pressure [Ri ght Upper Arm] 150/90 H Pulse Oximetry 95 Oxygen Delivery Me thod Room Air Course Vital Signs Vital signs: Initial Vital Signs Temperature 98.2 F 08/01/25 11:38 Temperature Source Temporal Artery Scan 08/01/25 11:38 Pulse Rate 89 08/01/25 11:38 Pulse Rhythm Regular 08/01/25 11:38 Pulse Strength 3+ Normal 08/01/25 11:38 Respiratory Rate 18 08/01/25 11:38 Blood Pressure 150/90 H 08/01/25 11:38 Blood Pressure Mean 110 H 08/01/25 11:38 Blood Pressure Position Sitting 08/01/25 11:38 Pulse Oximetry 95 08/01/25 11:38 Oxygen Delivery Method Room Air 08/01/25 11:38 Vital Signs Temperature 98.2 F 08/01/25 11:38 Pulse Rate 89 08/01/25 11:38 Respiratory Rate 18 08/01/25 11:38 Blood Pressure 150/90 H 08/01/25 11:38 Pulse Oximetry 95 08/01/25 11:38 Oxygen Delivery Method Room Air 08/01/25 11:38 Temperature 98.2 F 08/01/25 11:38 Pulse Rate 89 08/01/25 11:38 Respiratory Rate 18 08/01/25 11:38 Blood Pressure 150/90 H 08/01/25 11:38 Pulse Oximetry 95 08/01/25 11:38 Oxygen Delivery Method Room Air 08/01/25 11:38 Medications Administered Medications: Discontinued Medications Generic Name Dose Route Start Last Admin Trade Name Freq PRN Reason Stop Dose Admin Lidocaine/Epinephrine 20 ml 08/01/25 12:04 08/01/25 12:21 Lidocaine 1%-Epi 1:100,000 Mdv INFILTRATI 08/01/25 12:05 20 ml ONCE ONE Administration Medical Decision Making MDM Narrative Medical decision making narrative: Findings and exam are consistent with an uncomplicated laceration which was repaired as noted above. There is no evidence at this time to suggest any associated fracture or foreign body. There is no evidence to suggest tendon or arterial injury and patient is neurologically in tact. It does not penetrate through the retinaculum of the wrist. No signs of any tendon or median nerve injury. No arterial injury.. The patient is to follow up for suture removal as instructed in 7 days. Indications to seek urgent reevaluation and signs of infection (including but not limited to increasing pain, redness, swelling, fevers, and drainage) were reviewed. Tetanus is up-to-date. This is a clean and non-contaminated wound in which prophylactic antibiotics are not indicated. An understanding of the discharge instructions and need for follow up were verbally confirmed. The bigger challenge here is the mechanism of injury. This was a self-inflicted cutting. The patient cut himself with his own kitchen knife. It turns out that this was a self harm/cutting act due to acute psychosocial stress. His father it is is now in the hospital with cancer and a bad throat infection in this was very overwhelming for the patient last night. He does struggle with mental health as a baseline is good therapy and psychiatry already in place in the outpatient setting. He says he was not suicidal but more just cutting to relieve the stress and only got a temporary relief from it. He has no desire to cut again and has no other intent to harm himself. He has not had any thoughts of other means for suicide. He is here with his and she is supportive. She is aware of his struggles and also agrees that he is safe. They both think that he does not and inpatient treatment. They just came here to get stitches. At this point, based on the history there are several he he reassuring factors. First he actively seeking treatment for his cut admits that was self-inflicted but not a suicide attempt. Second he is clearly calm, alert, conversant. He is not showing signs of alcohol intoxication or withdrawal. There is no concern for an alcohol abuse or substance abuse pattern here. He has a supportive home environment and his is aware of his struggles and and supportive. She feels he can stay safe. They already have and active outpatient treatment regimen with therapy and a psychiatrist and he has already been in contact with his therapist today, prior to coming to the ER, because of this event. At this point, reasonable clinical judgment suggest that the patient is safe for outpatient management. He certainly does not meet criteria for 72 hour hold. We discussed possible voluntary hospitalization to help with his acute stressors but he feels that he would be better off at home. He needs to be available to go be with his father in the hospital, and being in the hospital would prevent that. He has a plan place with his therapist and psychiatrist for follow-up. Discharge Plan Discharge Clinical Impression: Laceration of left wrist, Deliberate self-cutting Patient Disposition: Home, Self-Care Condition: Stable Instructions: Laceration (ED), Depression (ED), Suicide Prevention (ED) Additional Instructions: As we discussed, please come back to the ER right away if you have any concerns for mental health or any other thoughts of cutting or self-harm or any thoughts of suicide. To manage your cut, try to keep it clean and covered with the antibiotic ointment and dressing. Change the dressing once every day until you have the stitches out in 7 days (next Monday). Avoid submerging the wound under water. It is okay to wash gently with clean water once per day. After the wound is clean gently dried and then reapply antibiotic ointment and a dressing. If he notice any signs infection (for instance, redness, unusual swelling around the wound, pus draining from the wound, fever), or if you have any other concerns, please come back to the ER right away to be rechecked. Prescriptions: No Action pantoprazole 40 mg tablet,delayed release (DR/EC) 40 mg PO DAILY baclofen 10 mg tablet 10 mg PO BID famotidine [Acid Metal Engineering Process Worker (famotidine)] 20 mg tablet 20 mg PO BID testosterone cypionate 200 mg/mL oil 200 mg IM Q2W Follow Up/Referrals: Melani Barnes DO [Primary Care Provider, Family Practice] Stand Alone Forms: [facility] Info Instructions Procedures Laceration Left wrist laceration: Pre procedure diagnosis: Left wrist laceration Verification/time out: correct patient, correct site and correct procedure Site: upper extremity Side (If applicable): left Size (cm): 3 Description: linear Depth: simple, single layer Local Anesthetic: lidocaine 1% and with epi Amount of anesthesia used (mL): 3 Pre-repair: wound explored Skin layer closed with: nylon Size (cm): 5-0 Number of sutures: 5 Technique: simple, interrupted
== END 2025-08-01 13:18 | disposition home or self-care (01) ==
PROVIDERS: Emergency Provider Emergency Medicine; PCP Family Medicine
DX: S61.512A Laceration without foreign body of left wrist, initial encounter (principal); X78.9XXA Intentional self-harm by unspecified sharp object, initial encounter
CPT/HCPCS: 12002; 99282; 99284